=== PATIENT | female | born 1970 | race Caucasian/White ===

== ENCOUNTER 2023-09-19 10:29 | Outpatient (REF) | payer BC, SELFPAY ==
[2023-09-19 13:22] LABS: MANUAL DIFF FLAG NO
[2023-09-19 13:29] LABS: Basophils Absolute Auto 0.1 X10*3/uL (0.0-0.2); Basophils Percent Auto 1.1 % (0-2); Eosinophils Absolute Auto 0.2 X10*3/uL (0.0-0.4); Eosinophils Percent Auto 2.7 % (0-4); Hematocrit 44.1 % (37.0-47.0); Hemoglobin 14.2 g/dl (12.0-16.0); Imm Gran Abs Auto 0.03 X10*3/uL (0.00-0.03); Imm Gran Pct Auto 0.4 % (0.0-0.4); Lymphocytes Absolute Auto 1.9 X10*3/uL (1.2-4.9); Mean Corpuscular HGB Conc 32.2 g/dl (31.0-35.0); Mean Corpuscular Hemoglobin 26.2 pg (27.0-33.0); Mean Corpuscular Volume 81.4 fL (80.0-98.0); Mean Platelet Volume 11.9 fL (9.4-12.3); Monocytes Absolute Auto 0.6 X10*3/uL (0.1-1.2); Monocytes Percent Auto 7.4 % (2-11); Neutrophils Absolute Auto 4.7 x10*3/uL (2.0-8.3); Neutrophils Percent Auto 63.4 % (45-73); Platelet Count 229 X10*3/uL (160-400); Red Blood Count 5.42 X10*6/uL (4.20-5.50); White Blood Count 7.4 X10*3/uL (4.8-10.8)
[2023-09-19 13:51] LABS: Alanine Aminotransferase 18 U/L (0-31); Alkaline Phosphatase 54 U/L (39-117); Anion Gap 10 (12-20); Aspartate Amino Transferase 17 U/L (5-31); Bilirubin Total 0.8 mg/dL (0.0-1.0); Blood Urea Nitrogen 13 mg/dL (9-16); Calcium 9.3 mg/dL (8.4-10.2); Carbon Dioxide 26 mmol/L (22-29); Chloride 105 mmol/L (96-108); Cholesterol 274 mg/dL (<200); Estimated Glomerular Filt Rate > 60; Glucose Random 96 mg/dL (60-115); HDL Cholesterol 58 mg/dL (>40); LDL Cholesterol Calculated 176 mg/dL (<100); Potassium 4.6 mmol/L (3.3-5.1); Sodium 136 mmol/L (135-145); Total Protein 7.3 g/dL (6.5-8.0); Triglycerides 204 mg/dL (<150)
== END 2023-09-19 10:30 | disposition home or self-care (01) ==
LOC: HO.10HDL 10:29
PROVIDERS: Visit Provider Internal Medicine
DX: Z00.00 Encounter for general adult medical examination without abnormal findings (principal); F32.9 Major depressive disorder, single episode, unspecified; I10 Essential (primary) hypertension
CPT/HCPCS: 36415; 80053; 80061; 85025

== ENCOUNTER 2023-12-06 07:47 | Outpatient (AMB) | payer BC, SELFPAY ==
--- NOTE | 2023-12-06 07:58 | MHC.OFFVIS ---
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 Last co testing was many years ago, last mammogram was many years ago to. In addition, the patient is complaining of right breast lump PFSH Medical History Hyperlipidemia Family History Father HTN (hypertension) Heart attack Mother Lung cancer Paternal Uncle Heart attack Maternal Grandfather Lung cancer Maternal Aunt Ovarian cancer Social History Household Members Other:: brother Housing: House Alcohol intake: current Alcohol intake frequency: holidays/special occasions only Patient Tobacco Use Status: Never used Tobacco Current occupational status: employed Current occupation: [employer] Sexually active: Yes Sexual orientation: Straight/Heterosexual Gender identity: Female Female Reproductive History Menstrual Total pregnancies: 1 Full term: 1 Number of Living Children: 1 Review of Systems Const All systems reviewed & are unremarkable except as noted in HPI and below Card Reports as per HPI Resp Reports as per HPI GI Reports as per HPI and Reports no additional complaints Reports as per HPI Physical Exam Vital Signs: Last Vital Signs BP 122/80 12/06/23 08:00 BMI result Body Mass Index 28.3 Const General: cooperative, healthy appearing and comfortable Chest Chest palpation & inspection: normal inspection of the chest and normal palpation of entire chest wall Breast/axilla inspection: normal inspection of the breasts (Left breast within normal), normal inspection of the axillae and abnormal inspection of the breast (0.2 cm lump, 6 cm from the nipple at 6 o'clock) Breast/axilla palpation: normal palpation of the breasts, normal palpation of the axillae and no axillary lymphadenopathy Resp Effort & Inspection: normal respiratory effort Auscultation: clear to auscultation bilaterally Percussion: percussion normal Cardio Palpation: normal PMI Rate: regular rate Rhythm: regular rhythm Heart sounds: no murmurs and no rubs Peripheral pulses: Peripheral pulses 2+ throughout GI Inspection: Yes normal to inspection Palpation (GI): Soft to palpation, nontender, no guarding, not rigid and No hepatosplenomegaly present Percussion: Yes normal to percussion Auscultation: normal bowel sounds Rectal Exam - Female: deferred General: Yes bladder normal to palpation External Female Exam: No lesion Speculum Exam - Vagina: normal appearance of the vagina, normal palpation, normal vaginal discharge and not erythematous Speculum Exam - Cervix: normal appearance of the cervix, normal palpation and Other cervical findings present (Endocervical polyp 0.2 cm) Bimanual exam- vagina & uterus: normal bimanual exam, normal palpation, uterine size normal, bladder normal to palpation, consistency normal and normal palpation Bimanual Exam- Adnexa, other: normal adnexae, no masses and no tenderness Office Procedures DIGITAL STRATEGY DIRECTOR Biopsy Before the procedure was started, discussed with the patient the procedure technique, alternatives & all the risks associated with the procedure including but not limited to: bleeding , infection, uterine perforation, injury to bladder, vessels, bowels, possible need for transfusion with all its risks, and others. All questions were answered, the patient verbalized understanding and signed the consent. Urine test done in the office was negative Using a long Katiuska Clamp the endocervical polyp was grasped and twisted around till it came off, hemostasis was secured using pressure. The patient tolerated the procedure well. Instructions were given to the patient to call if bleeding, temp>100.4 occur. The patient verbalized understanding and agreed with the plan. This note was generated with a voice recognition program. Some errors may have been overlooked during the review of this note. Sometimes these errors may affect the content or meaning of a given sentence. 18735-Lszyvf of Cervix Procedure code (CPT) selection complete Assessment & Plan Assessment & Plan (1) Abnormal uterine bleeding (AUB): Code(s): N93.9 - Abnormal uterine and vaginal bleeding, unspecified Category: Medical Plan: Co testing done, GC and chlamydia taken CBC, TSH, prolactin, HCG, FSH/LH and pelvic ultrasound ordered. Discussed with the patient the different causes of abnormal bleeding including thyroid disorders, uterine and ovarian pathology, endometrial hyperplasia, carcinoma and other potential causes. Discussed with the patient the work up including CBC (to r/o anemia), TSH, prolactin, pelvic Ultrasound, endometrial biopsy to r/o endometrial pathology. All questions answered and the patient verbalized understanding. Instructed the patient to schedule an appointment for an endometrial biopsy in 2 weeks. (2) Breast lump: Comment: Right breast,0.2 cm lump, 6 cm from the nipple at 6 o'clock Code(s): N63.0 - Unspecified lump in unspecified breast Category: Medical Plan: Discussed with the patient the finding on Breast exam (breast lump) .The differential diagnosis includes but not limited to lump/cyst/pre cancer/cancer or dense breast tissue. The work up includes right breast US and bilateral implants diagnostic mammogram and referred the patient for surgical breast consult. Instructed the patient to call our office back in case a referral appointment is not scheduled, missed or canceled so that we will assist on rescheduling another appointment, the patient verbalized understanding agreed with the plan. (3) Endocervical polyp: Code(s): N84.1 - Polyp of cervix uteri Category: Medical Plan: Polypectomy done, see procedure note Orders: Orders HCG Quantitative Today N63.0 - Unspecified lump in unspecified breast, N93.9 - Abnormal uterine and vaginal bleeding, unspecified Follicle Stimulating Hormone Today N63.0 - Unspecified lump in unspecified breast, N93.9 - Abnormal uterine and vaginal bleeding, unspecified Complete Blood Count no Diff Today N63.0 - Unspecified lump in unspecified breast, N93.9 - Abnormal uterine and vaginal bleeding, unspecified US breast RT complete Today N63.0 - Unspecified lump in unspecified breast MM tomosynthesis diag imp BI Today N63.0 - Unspecified lump in unspecified breast TSH reflex Free T4 Today N63.0 - Unspecified lump in unspecified breast, N93.9 - Abnormal uterine and vaginal bleeding, unspecified Prolactin Today N63.0 - Unspecified lump in unspecified breast, N93.9 - Abnormal uterine and vaginal bleeding, unspecified Lutenizing Hormone Today N63.0 - Unspecified lump in unspecified breast, N93.9 - Abnormal uterine and vaginal bleeding, unspecified US pelvic and transvaginal Today N63.0 - Unspecified lump in unspecified breast, N93.9 - Abnormal uterine and vaginal bleeding, unspecified AMB DIGITAL STRATEGY DIRECTOR Biopsy Today N84.1 - Polyp of cervix uteri Referrals General Surgery Referral N63.0 - Unspecified lump in unspecified breast Coding Level of Care Code New Pt Level 3 (68502) Procedure Only Diagnoses Abnormal uterine bleeding (AUB) N93.9 Breast lump N63.0 Endocervical polyp N84.1 CPT Codes DIGITAL STRATEGY DIRECTOR Biopsy - CPT: 71578-Otmnct of Cervix ([id number])
[2023-12-06 08:00] VITALS: BP 122/80; BMI 28.3
== END 2023-12-06 08:49 | disposition home or self-care (01) ==
PROVIDERS: PCP Internal Medicine; Visit Provider Obstetrics & Gynecology
DX: N93.9 Abnormal uterine and vaginal bleeding, unspecified (principal); N63.0 Unspecified lump in unspecified breast; N84.1 Polyp of cervix uteri
CPT/HCPCS: 57500; 99203

== ENCOUNTER 2023-12-06 07:47 | Outpatient (REF) | payer BC, SELFPAY ==
[2023-12-06 18:05] LABS: CT PCR NOT DETECTED (Not Detect.); NG PCR NOT DETECTED (Not Detect.)
[2023-12-14 01:39] LABS: HPV mRNA E6/E7 rflx Not Detected (Not Detected)
== END 2023-12-06 07:48 | disposition home or self-care (01) ==
LOC: HO.LNP 07:47
PROVIDERS: Visit Provider Obstetrics & Gynecology
DX: Z12.4 Encounter for screening for malignant neoplasm of cervix (principal); Z11.51 Encounter for screening for human papillomavirus (HPV); N93.9 Abnormal uterine and vaginal bleeding, unspecified; N84.1 Polyp of cervix uteri; Z20.2 Contact with and (suspected) exposure to infections with a predominantly sexual mode of transmission
CPT/HCPCS: 0353U; 57500; 87624; 88142; 88305

== ENCOUNTER 2023-12-13 13:35 | Outpatient (REF) | payer BC, SELFPAY ==
--- NOTE | ~2023-12-13 | US_ITS ---
EXAMINATION: US PELVIS COMPLETE CLINICAL INFORMATION: Abnormal uterine bleeding; the last menstrual period is not specified. COMPARISON: None. TECHNIQUE: Transabdominal imaging was performed. FINDINGS: The uterus is of normal size and echogenicity, measuring 8.8 x 5.1 x 8.1 cm. The uterus is anteverted and anteflexed. A regular, homogeneous endometrium is identified measuring 1.6 cm. A Nabothian cyst is seen within the cervix. FIBROIDS: There is 1 fibroid seen. 1. Location: Lower anterior uterine body, myometrial. Size: 1.6 x 0.8 x 1.3 cm. Fibroid characteristics: Hypoechoic Both ovaries are of normal size and echogenicity. The right measures 2.6 x 1.7 x 2.3 cm for a volume of 5.3 mL. The left measures 2.4 x 1.1 x 1.7 cm for a volume of 2.3 mL. There is no pelvic free fluid. No adnexal mass is seen. US/US pelvic and transvaginal IMPRESSION: 1. A small uterine fibroid is seen, as detailed. 2. The endometrial stripe thickness is upper normal. 3. A nabothian cyst is seen within the cervix.
== END 2023-12-13 13:36 | disposition home or self-care (01) ==
LOC: HO.US 13:35
PROVIDERS: PCP Internal Medicine; Visit Provider Obstetrics & Gynecology
DX: N93.9 Abnormal uterine and vaginal bleeding, unspecified (principal); N63.0 Unspecified lump in unspecified breast
CPT/HCPCS: 76830; 76856

== ENCOUNTER 2023-12-14 14:19 | Outpatient (AMB) | payer BC, SELFPAY ==
[2023-12-14 14:24] VITALS: BMI 29.8
--- NOTE | 2023-12-14 14:24 | MHC.OFFVIS ---
Vital Signs 12/14/23 14:24 Height 5 ft 3 in Weight 168 lb BMI 29.8 Intake Visit Reasons: right breast lump Intake Note: This patient presents for an assessment for right breast lump. Patient c/o; reports lump under right breast, reports no pain or tenderness, reports no discharge. 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 She says that she has felt this lump on the underside of her right breast for about months now. She says that this started as a small lump that became swollen. This has then shrank back to previous size. She says she may have noticed a little bit of scanty drainage in the past She does have a history of breast implants from 10 years ago. She denies any trauma or insect bite in the past. Her menarche was at age of 10. Her 1st was at age of 22. She says she had only 1 . She continues to have external periods although this has been irregular. REPLACED BY [facility] Medical History (Updated 12/14/23 @ 14:49 by Braulio Du MD) Epidermal cyst Hyperlipidemia Family History Father HTN (hypertension) Heart attack Mother Lung cancer Bone cancer Paternal Uncle Heart attack Maternal Grandfather Lung cancer Maternal Aunt Ovarian cancer Family/Other Brain cancer Lung cancer Social History Household Members Other:: brother Housing: House Alcohol intake: current Alcohol intake frequency: holidays/special occasions only Patient Tobacco Use Status: Never used Tobacco Current occupational status: employed Current occupation: [employer] Sexual orientation: Straight/Heterosexual Gender identity: Female Female Reproductive History Menstrual Age of Menarche: 10 Total pregnancies: 1 Full term: 1 Review of Systems Const Denies chills and Denies fever(s) Card Denies chest pain, Denies dyspnea and Denies dyspnea on exertion Resp Denies cough, Denies dyspnea and Denies dyspnea on exertion GI Denies hematochezia and Denies change in bowel habits Denies hematuria Musc Denies back pain and Denies limited range of motion Neuro Denies focal weakness and Denies convulsions Psych Denies depression and Denies mood swings Physical Exam Vital Signs: BMI result Body Mass Index 29.8 Const General: comfortable and no acute distress Orientation/consciousness: patient oriented x3 Neck Neck: Yes no lymphadenopathy Chest Other: Lower part of the right breast with note of a cystic induration on the skin, about 1 cm in size, consistent with an epidermal cyst, not inflamed, not tender No palpable masses on either breasts, no axillary lymphadenopathy Resp Auscultation: clear to auscultation bilaterally Cardio Rhythm: regular rhythm GI Palpation (GI): Soft to palpation, nontender and no guarding Neuro General: patient oriented x3 Assessment & Plan Assessment & Plan (1) Epidermal cyst: Code(s): L72.0 - Epidermal cyst Category: Medical Plan: She has an epidermal cyst of the right breast. This is currently not swollen and not inflamed I explained to her the option of excision. I discussed the technique of this procedure under local anesthesia. I reviewed the risks, benefits, and alternatives She says she will continue to monitor the epidermal cyst for now and will come back to me if she decides to proceed. She is scheduled to have a mammogram next week as well for screening. Coding Level of Care Code New Pt Level 3 (07908) Diagnoses Epidermal cyst L72.0
== END 2023-12-14 14:47 | disposition home or self-care (01) ==
PROVIDERS: PCP Internal Medicine; Referring Provider Obstetrics & Gynecology; Visit Provider Surgery
DX: L72.0 Epidermal cyst (principal)
CPT/HCPCS: 99203

== ENCOUNTER → 2023-12-14 14:19 | Outpatient (BNVA) | payer BC, SELFPAY | PROVIDERS: Referring Provider Obstetrics & Gynecology; Visit Provider Surgery ==

== ENCOUNTER 2023-12-20 10:22 | Outpatient (REF) | payer BC, SELFPAY ==
[2023-12-20 13:10] LABS: MANUAL DIFF FLAG NO
[2023-12-20 13:36] LABS: Basophils Absolute Auto 0.1 X10*3/uL (0.0-0.2); Basophils Percent Auto 0.9 % (0-2); Eosinophils Absolute Auto 0.2 X10*3/uL (0.0-0.4); Eosinophils Percent Auto 2.7 % (0-4); Hematocrit 40.9 % (37.0-47.0); Hemoglobin 13.1 g/dl (12.0-16.0); Imm Gran Abs Auto 0.04 X10*3/uL (0.00-0.03); Imm Gran Pct Auto 0.5 % (0.0-0.4); Lymphocytes Absolute Auto 2.3 X10*3/uL (1.2-4.9); Lymphocytes Percent Auto 30.4 % (20-40); Mean Corpuscular Hemoglobin 26.1 pg (27.0-33.0); Mean Corpuscular Volume 81.5 fL (80.0-98.0); Mean Platelet Volume 12.1 fL (9.4-12.3); Monocytes Absolute Auto 0.5 X10*3/uL (0.1-1.2); Monocytes Percent Auto 6.8 % (2-11); Neutrophils Absolute Auto 4.4 x10*3/uL (2.0-8.3); Neutrophils Percent Auto 58.7 % (45-73); Platelet Count 238 X10*3/uL (160-400); Red Blood Count 5.02 X10*6/uL (4.20-5.50); Red Cell Distribution Width 13.2 % (11.0-16.0); White Blood Count 7.5 X10*3/uL (4.8-10.8)
[2023-12-20 13:53] LABS: Alanine Aminotransferase 30 U/L (0-31); Albumin Level 4.1 g/dL (3.5-5.0); Alkaline Phosphatase 57 U/L (39-117); Anion Gap 9 (12-20); Aspartate Amino Transferase 23 U/L (5-31); Blood Urea Nitrogen 8 mg/dL (9-16); Calcium 9.3 mg/dL (8.4-10.2); Carbon Dioxide 28 mmol/L (22-29); Chloride 106 mmol/L (96-108); Cholesterol 180 mg/dL (<200); Estimated Glomerular Filt Rate > 60; Glucose Random 95 mg/dL (60-115); HDL Cholesterol 60 mg/dL (>40); LDL Cholesterol Calculated 95 mg/dL (<100); Potassium 4.4 mmol/L (3.3-5.1); Sodium 139 mmol/L (135-145); Total Protein 7.5 g/dL (6.5-8.0); Triglycerides 125 mg/dL (<150)
[2023-12-20 14:09] LABS: Thyroid Stimulating Hormone 0.87 uIU/mL (0.32-4.0)
[2023-12-20 14:11] LABS: HCG Quantitative < 2 mIU/mL; TSH reflex Free T4 0.92 uIU/mL (0.32-4.0)
[2023-12-22 01:18] LABS: Follicle Stimulating Hormone 30.9 mIU/mL; Prolactin 4.9 ng/mL
== END 2023-12-20 10:23 | disposition home or self-care (01) ==
LOC: HO.10HDL 10:22
PROVIDERS: Referring Provider Internal Medicine; Visit Provider Obstetrics & Gynecology
DX: E78.00 Pure hypercholesterolemia, unspecified (principal); F32.5 Major depressive disorder, single episode, in full remission; I10 Essential (primary) hypertension; N95.0 Postmenopausal bleeding; R53.83 Other fatigue; N39.9 Disorder of urinary system, unspecified; N63.0 Unspecified lump in unspecified breast
CPT/HCPCS: 36415; 80053; 80061; 83001; 83002; 84146; 84443; 84702; 85025

== ENCOUNTER 2023-12-20 14:46 | Outpatient (REF) | payer BC, SELFPAY ==
--- NOTE | ~2023-12-20 | US_ITS ---
EXAMINATION: MM DIAGNOSTIC DIGITAL BREAST TOMOSYNTHESIS, BILATERAL US BREAST LIMITED, RIGHT CLINICAL INFORMATION: 53-year-old female, Palpable lump right breast 6:00 axis, 6 cm from nipple. Baseline exam, also bilateral screening. Bilateral implants in place. No significant family history. No additional prior surgery. COMPARISON: Mammography: None. Baseline exam. TECHNIQUE: Digital mammography is performed in craniocaudal and mediolateral oblique views. Digital breast tomosynthesis is performed in implant-displaced craniocaudal and implant-displaced mediolateral oblique views. Synthesized 2D images are generated from the tomosynthesis. Computer-aided detection (CAD) is performed for this exam. In addition, spot compression 3-D implant displaced right CC and MLO views were obtained, as well as a implant displaced full-field 3-D right mediolateral view. FINDINGS: The breasts are heterogeneously dense, which may obscure small masses (ACR BI-RADS breast composition Category c). The implant contours are unremarkable. Mild skin thickening measuring 3 mm x 20 mm is noted abutting the BB marker, which may explain the palpable focus of concern. This appears to represent a dermal lesion. Otherwise, There are no suspicious masses, suspicious grouped calcifications, or areas of architectural distortion in either breast. No additional abnormality is seen abutting the BB marker at 6:00 in the right breast. This will be evaluated with ultrasound. No additional skin abnormality. No axillary abnormalities. ULTRASOUND: CLINICAL INFORMATION: As above. COMPARISON: None TECHNIQUE: Targeted sonographic evaluation right breast was performed using a high frequency linear transducer. Attention was given to the palpable region of concern 6:00 axis right breast. Selected archived documentation. FINDINGS: RIGHT BREAST: -No suspicious mass, abnormal shadowing, cystic abnormality, or area of architectural distortion is identified. -In the region of palpable concern, there is a dermal lesion with skin thickening measuring 5 x 2 x 5 mm, most likely a sebaceous cyst or similar. This finding is benign. US/US breast RT limited mamm only IMPRESSION: -There are no findings suspicious for malignancy in either breast. -Bilateral implants are present without complication. -Focus of palpable concern 6:00 right breast relates to a dermal lesion. Recommend clinical management. -Otherwise, recommend returning to routine annual screening mammography. OVERALL ASSESSMENT: Mammography: BI-RADS 2 - Benign Findings Ultrasound: BI-RADS 2 - Benign Findings RECOMMENDATION: 1. Patient should be managed based on the clinical impression. 2. Otherwise, routine annual screening mammography.
== END 2023-12-20 14:47 | disposition home or self-care (01) ==
LOC: HO.MAMMO 14:46
PROVIDERS: PCP Internal Medicine; Visit Provider Obstetrics & Gynecology
DX: N63.15 Unspecified lump in the right breast, overlapping quadrants (principal)
CPT/HCPCS: 76642; 77062; 77066

== ENCOUNTER → 2023-12-20 15:30 | Outpatient (BNV) | payer BC, SELFPAY | PROVIDERS: PCP Internal Medicine; Visit Provider Radiology Diagnostic Radiology | DX: N63.15 Unspecified lump in the right breast, overlapping quadrants (principal) | CPT/HCPCS: 76642; 77062; 77066 ==

== ENCOUNTER 2024-01-10 12:14 | Outpatient (AMB) | payer BC, SELFPAY ==
--- NOTE | 2024-01-10 12:21 | MHC.OFFVIS ---
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 Gas Present (Becca) Allergies No Known Allergies Allergy (Verified 01/10/24 12:21) Post menopausal: Yes HPI Comments Details: Presenting for EMB [facility] Medical History (Updated 12/14/23 @ 14:49 by Braulio Du MD) Epidermal cyst Hyperlipidemia Family History Father HTN (hypertension) Heart attack Mother Lung cancer Bone cancer Paternal Uncle Heart attack Maternal Grandfather Lung cancer Maternal Aunt Ovarian cancer Family/Other Brain cancer Lung cancer Social History Household Members Other:: brother Housing: House Alcohol intake: current Alcohol intake frequency: holidays/special occasions only Patient Tobacco Use Status: Never used Tobacco Current occupational status: employed Current occupation: [employer] Sexual orientation: Straight/Heterosexual Gender identity: Female Female Reproductive History Menstrual Age of Menarche: 10 Physical Exam Vital Signs: Last Vital Signs BP 132/80 01/10/24 12:22 BMI result Body Mass Index 29.8 Office Procedures Endometrial Biopsy Details: The patient was counseled regarding the indication and benefits of endometrial sampling to rule out endometrial pathology including not limited to endometrial hyperplasia or endometrial cancer and others; The alternatives (Either do nothing vs. hysteroscopy D&C) & the risks were discussed with the patient including but not limited: pain, uterine perforation, bleeding, infection, possible injury to bladder, bowel, ureter, possible need for blood transfusion with all its possible risks. The patient verbalized understanding all questions answered and signed consent. The patient was placed into the dorsal lithotomy position; a speculum was inserted in the vagina. Using aseptic technique for the procedure, the cervix was cleansed with Betadine. The anterior lip of the cervix was grasped with a single tooth tenaculum. The uterus was sounded to 7 cm with a 4 mm Pipelle was used. Tissues samples were obtained and placed in formalin, in a patient labeled container and sent to the pathology department. At the end of the procedure, there was minimal bleeding noted The patient tolerated the procedure well and was discharged in good condition with the following instructions: Nothing in the vagina until the bleeding stops. No sex until the bleeding stops, to call if any of the following occurs: fever (>100.4), flu-like symptoms, abdominal pain, heavy bleeding, four smelling vaginal discharge. The patient was instructed to schedule a Follow up appointment in 2 weeks to discuss pathology results of the biopsy and treatment options. This note was generated with a voice recognition program. Some errors may have been overlooked during the review of this note. Sometimes these errors may affect the content or meaning of a given sentence. [id number] Biopsy Assessment & Plan Assessment & Plan (1) Abnormal uterine bleeding (AUB): Code(s): N93.9 - Abnormal uterine and vaginal bleeding, unspecified Category: Medical Plan: EMB done, see procedure Orders: Orders AMB Endometrial Biopsy Today N93.9 - Abnormal uterine and vaginal bleeding, unspecified Coding Level of Care Code Procedure Only Diagnoses Abnormal uterine bleeding (AUB) N93.9 CPT Codes Endometrial Biopsy - CPT: 61680-Pjybjzxizwd Biopsy ([id number])
[2024-01-10 12:22] VITALS: BP 132/80; BMI 29.8
== END 2024-01-10 12:42 | disposition home or self-care (01) ==
LOC: HO.HWS 12:14
PROVIDERS: PCP Internal Medicine; Visit Provider Obstetrics & Gynecology
DX: N93.9 Abnormal uterine and vaginal bleeding, unspecified (principal); Z32.02 Encounter for pregnancy test, result negative
CPT/HCPCS: 58100

== ENCOUNTER 2024-01-10 12:14 | Outpatient (REF) | payer BC, SELFPAY | END 2024-01-10 12:15 | disposition home or self-care (01) | LOC: HO.LAB 12:14 | PROVIDERS: PCP Internal Medicine; Visit Provider Obstetrics & Gynecology | DX: N93.9 Abnormal uterine and vaginal bleeding, unspecified (principal) | CPT/HCPCS: 58100; 81025; 88305 ==

== ENCOUNTER 2024-01-16 14:54 | Outpatient (AMB) | payer BC, SELFPAY ==
[2024-01-16 14:56] VITALS: BP 122/76; BMI 29.7
--- NOTE | 2024-01-16 14:56 | MHC.OFFVIS ---
Vital Signs 01/16/24 14:56 Height 5 ft 3 in Weight 167 lb 8.821 oz BMI 29.7 BP 122/76 Intake Visit Reasons: pre op Allergies No Known Allergies Allergy (Verified 01/10/24 12:21) HPI Comments Details: The patient is presenting after endometrial biopsy. The patient has no complaints, no vaginal bleeding, no feverishness chills or abdominal pain. The endometrial biopsy pathology report showed the following: Benign disordered proliferative endometrium with focal secretory changes, glandular and stromal breakdown, and fragments suggestive of endometrial polyp/s; no atypia or carcinoma PFSH Medical History Epidermal cyst Hyperlipidemia Family History Father HTN (hypertension) Heart attack Mother Lung cancer Bone cancer Paternal Uncle Heart attack Maternal Grandfather Lung cancer Maternal Aunt Ovarian cancer Family/Other Brain cancer Lung cancer Social History Household Members Other:: brother Housing: House Alcohol intake: current Alcohol intake frequency: holidays/special occasions only Patient Tobacco Use Status: Never used Tobacco Current occupational status: employed Current occupation: [employer] Sexual orientation: Straight/Heterosexual Gender identity: Female Female Reproductive History Menstrual Age of Menarche: 10 Review of Systems Const All systems reviewed & are unremarkable except as noted in HPI and below Card Reports as per HPI Resp Reports as per HPI GI Reports as per HPI and Reports no additional complaints Reports as per HPI Physical Exam Vital Signs: Last Vital Signs BP 122/76 01/16/24 14:56 BMI result Body Mass Index 29.7 Const General: cooperative, healthy appearing and comfortable Chest Chest palpation & inspection: normal inspection of the chest and normal palpation of entire chest wall Breast/axilla inspection: normal inspection of the breasts and normal inspection of the axillae Breast/axilla palpation: normal palpation of the breasts, normal palpation of the axillae and no axillary lymphadenopathy Resp Effort & Inspection: normal respiratory effort Auscultation: clear to auscultation bilaterally Percussion: percussion normal Cardio Palpation: normal PMI Rate: regular rate Rhythm: regular rhythm Heart sounds: no murmurs and no rubs Peripheral pulses: Peripheral pulses 2+ throughout GI Inspection: Yes normal to inspection Palpation (GI): Soft to palpation, nontender, no guarding, not rigid and No hepatosplenomegaly present Percussion: Yes normal to percussion Auscultation: normal bowel sounds Rectal Exam - Female: deferred General: Yes bladder normal to palpation External Female Exam: No lesion Speculum Exam - Vagina: normal appearance of the vagina, normal palpation, normal vaginal discharge and not erythematous Speculum Exam - Cervix: normal appearance of the cervix and normal palpation Bimanual exam- vagina & uterus: normal bimanual exam, normal palpation, uterine size normal, bladder normal to palpation, consistency normal and normal palpation Bimanual Exam- Adnexa, other: normal adnexae, no masses and no tenderness Assessment & Plan Assessment & Plan (1) Abnormal uterine bleeding (AUB): Comment: Endometrial polyp by EMB pathology Code(s): N93.9 - Abnormal uterine and vaginal bleeding, unspecified Category: Medical Plan: Discussed with the patient the results the endometrial biopsy showing fragments of endometrial polyp, recommended hysteroscopy D&C possible polypectomy/myomectomy Discussed with the patient the procedure , all benefits and risks including but not limited to inability to complete the procedure , insufficient endometrial tissue for a complete evaluation of the endometrial cavity , bleeding, infection, possible need for blood transfusion with all its risk ( HIV,syphilis, Hepatitis, anaphylaxis shock, others..), injury to bladder, rectum, possible need for laparoscopy/laparotomy or hysterectomy. The patient verbalized understanding and signed the consent. Instructions given the patient to stay NPO after midnight the day prior to the procedure and to take only the specific medication (s) discussed the morning of the surgical procedure and to schedule a 2 week postoperative appointment Coding Level of Care Code Est Pt Level 3 (91649) Diagnoses Abnormal uterine bleeding (AUB) N93.9
== END 2024-01-16 15:32 | disposition home or self-care (01) ==
LOC: HO.HWS 14:54
PROVIDERS: PCP Internal Medicine; Visit Provider Obstetrics & Gynecology
DX: N93.9 Abnormal uterine and vaginal bleeding, unspecified (principal)
CPT/HCPCS: 99213

== ENCOUNTER → 2024-01-16 14:54 | Outpatient (BNVA) | payer BC, SELFPAY | PROVIDERS: PCP Internal Medicine; Visit Provider Obstetrics & Gynecology ==

== ENCOUNTER 2024-01-26 09:20 | Day surgery (SDC) | payer BC, SELFPAY ==
[2024-01-26 09:31] VITALS: BMI 29.7
--- NOTE | 2024-01-26 09:55 | HO.ANESPROP2 ---
Documented by User: Lyndsey Ledesma NP 01/24/24 12:25 HPI - Anesthesia Eval Consult details Narrative: 53yo F for D&C Hysteroscopy,possible myomectomy,possible polypectomy PMFSH Active Problems Active Problems: All Active Problems Endometrial polyp (Acute) Epidermal cyst (Acute) Endocervical polyp (Acute) Breast lump (Acute) Abnormal uterine bleeding (AUB) (Acute) Past Medical History Medical History Epidermal cyst Hyperlipidemia Family History Family History Father HTN (hypertension) Heart attack Mother Lung cancer Bone cancer Paternal Uncle Heart attack Maternal Grandfather Lung cancer Maternal Aunt Ovarian cancer Family/Other Brain cancer Lung cancer Social History Social History Household Members Other:: brother Housing: House Alcohol intake: current Alcohol intake frequency: a few times a week Patient Tobacco Use Status: Never used Tobacco Use of substances other than those prescribed or required for medical reasons: No Are you DNR?: No Advance Directives: No Advance Directives Information Provided: Yes Advance Directives on File: No Current occupational status: employed Current occupation: [employer] Sexual orientation: Straight/Heterosexual Gender identity: Female Meds Allergies Allergy/AdvReac Type Severity Reaction Status Date / Time No Known Allergies Allergy Verified 01/10/24 12:21 Home Medications ?Medication ?Instructions ?Recorded ?Confirmed ?Last Taken ?Type atorvastatin 40 mg tablet 40 mg PO DAILY 12/06/23 01/26/24 01/25/24 History sertraline 50 mg tablet 50 mg PO DAILY 12/06/23 01/26/24 01/25/24 History Assessment and Plan Assessment Anesthesia Assessment: Chart Reviewed Documented by User: Tessy Gustafson DO 01/26/24 09:58 PMFSH Past Medical History Medical History Epidermal cyst Hyperlipidemia Family History Family History Father HTN (hypertension) Heart attack Mother Lung cancer Bone cancer Paternal Uncle Heart attack Maternal Grandfather Lung cancer Maternal Aunt Ovarian cancer Family/Other Brain cancer Lung cancer Family history of problems with anesthesia: No Surgical History History of Problems with Anesthesia: No Social History Social History Household Members Other:: brother Housing: House Alcohol intake: current Alcohol intake frequency: a few times a week Patient Tobacco Use Status: Never used Tobacco Use of substances other than those prescribed or required for medical reasons: No Are you DNR?: No Advance Directives: No Advance Directives Information Provided: Yes Advance Directives on File: No Current occupational status: employed Current occupation: [employer] Sexual orientation: Straight/Heterosexual Gender identity: Female Meds Allergies Allergy/AdvReac Type Severity Reaction Status Date / Time No Known Allergies Allergy Verified 01/10/24 12:21 Home Medications ?Medication ?Instructions ?Recorded ?Confirmed ?Last Taken ?Type atorvastatin 40 mg tablet 40 mg PO DAILY 12/06/23 01/26/24 01/25/24 History sertraline 50 mg tablet 50 mg PO DAILY 12/06/23 01/26/24 01/25/24 History Exam Exam Date and Time: January 26, 2024 0957 Height,Weight and Vital Signs: Vital Signs Oxygen Delivery Method Room Air 01/26/24 09:44 Oxygen Delivery Method Room Air 01/26/24 09:44 Height 5 ft 3 in Weight 75.948 kg Airway Mallampati Class: II TM Dist: >3cm Neck ROM: Full Loose/Missing/Broken Teeth: No (patient denies any loose or broken teeth) Heart: S1S2 Lungs: CTAB Assessment and Plan Assessment Anesthesia Assessment: Anesthesia Plan Discussed and Chart Reviewed Final Anesthetic Review Family History of Problems with Anesthesia: No History of Problems with Anesthesia: No NPO: Yes ASA Class: I Final Preanesthetic Review: No Changes in Pt Med Stat, Meds/Allgs Chart Reviewed, Consent Obtained/Reviewed and Anes Risks/Benef Reviewed Patient Risk: Low Procedure Risk: Low Anesthetic Plan Anesthetic Plan: GA and Agree w/ Assess. and Plan Disposition: Standard PACU
[2024-01-26] MEDS: Lactated Ringers 1,000 ML 100 ML IVCONT (10:01)
[2024-01-26 10:04] VITALS: BP 132/62; PULSE 62; RESP 18; TEMP 35.9; O2SAT 96
--- NOTE | 2024-01-26 10:10 | MHC.SHP ---
Pre-Procedural Eval Section A - 24 Hr Update-Section A only Date of Service: 01/26/24 The patient is an INPATIENT: No Changes since office visit: No Cold of Flu in the past 2 weeks, No New Medical Problems, No Changes in Medication and No Patient answered all questions The patient has been examined within 24 hours of the surgical procedure. The History & Physical has been completed within 30 days and I have reviewed it.: Yes Section B - Complete if H&P > 30 days Chief Complaint: Abnormal uterine and vaginal bleeding, unspecified Allergies: Allergies Allergy/AdvReac Type Severity Reaction Status Date / Time No Known Allergies Allergy Verified 01/10/24 12:21 Plan Diagnosis/Plan: Unchanged I have reviewed the history and physical and performed a pertinent physical examination on my patient. No changes have occurred unless specified. Time Spent With Patient Time: Total time managing care of this patient today ____ minutes.
--- NOTE | 2024-01-26 11:12 | P.BOP_ITS ---
Brief Operative Note Date of Service: 01/26/24 Pre-op diagnosis: Abnormal uterine bleeding, endometrial polyp on EMB pathology Post-op diagnosis: same (Endometrial polyp) Procedure: Hysteroscopy D&C, Polypectomy Surgeon: Alvaro Gill MD Anesthesia: GLMA Was an Head Turning Machine Operator used for this Procedure?: No Estimated blood loss (mL): 0 Pathology: other (Endometrial Scrapping. Polyp) Condition: stable Disposition: PACU
--- NOTE | 2024-01-26 11:12 | W.PM.OPN ---
Operative Note Operative Note Date of Service: 01/26/24 Narrative: Preop Diagnosis: Abnormal uterine bleeding, Endometrial polyp on EMB pathology Operation: Diagnostic Hysteroscopy, Dilataion & Curettage and polypectomy Post Op Diagnosis: Endometrial Polyp QBL: Minimal Anesthesia: GLMA Surgeon: Alvaro Gill MD Heating Equipment Installer: None Complication: None Pathology: Endometrial Scrapings, Endometrial polyp Procedure: The patient was put in the dorsal lithotomy position, scrubbed, and draped in the usual manner. A sterile speculum was inserted in the patient's vagina. The anterior lip of the cervix was grasped with a single tooth tenaculum. The cervix was dilated up to 5 mm, then the scope was inserted in the patient's uterus. Inspection revealed endometrial polyp. The Myosure Reach device was used; it was introduced through the operative channel and polypectomy done with no complications. The scope was then taken out from the uterine cavity, sharp curettings was carried on with minimal to moderate amount of tissues retrieved. At the end of the procedure, all instruments were taken out of the patient uterine and vaginal cavity. The single tooth tenaculum was removed and homeostasis was assured using pressure,. The patient tolerated the procedure well and was transferred to the PACU in a stable condition.
[2024-01-26 11:14] VITALS: BP 100/49; PULSE 58; RESP 14; TEMP 36.6; O2SAT 98
[2024-01-26 11:19] VITALS: BP 97/54; PULSE 61; RESP 14; O2SAT 94
[2024-01-26 11:24] VITALS: BP 108/53; PULSE 78; RESP 16; O2SAT 95
[2024-01-26 11:29] VITALS: BP 115/63; PULSE 70; RESP 16; O2SAT 95
[2024-01-26 11:40] VITALS: BP 122/66; PULSE 66; RESP 16; TEMP 36.6; O2SAT 97
== END 2024-01-26 12:10 | disposition home or self-care (01) ==
PROVIDERS: PCP Internal Medicine; Visit Provider Obstetrics & Gynecology
PROC: 0UDB8ZZ Extraction of Endometrium, Via Natural or Artificial Opening Endoscopic (ICD-10-PCS; CPT 58558; principal; 2024-01-26 11:00)
DX: N93.9 Abnormal uterine and vaginal bleeding, unspecified (principal); N84.0 Polyp of corpus uteri; E78.5 Hyperlipidemia, unspecified; Z79.899 Other long term (current) drug therapy
CPT/HCPCS: 58558; 88305; J1100; J1885; J2250; J2405; J2704; J3010

== ENCOUNTER → 2024-01-26 09:20 | Outpatient (BNV) | payer BC, SELFPAY | PROVIDERS: PCP Internal Medicine; Visit Provider Obstetrics & Gynecology | DX: N93.9 Abnormal uterine and vaginal bleeding, unspecified (principal); N84.0 Polyp of corpus uteri | CPT/HCPCS: 58558 ==

== ENCOUNTER 2024-02-08 12:46 | Outpatient (AMB) | payer BC, SELFPAY ==
--- NOTE | 2024-02-08 12:47 | A.OFFVIS_ITS ---
Vital Signs 02/08/24 12:49 BP 116/70 Intake Visit Reasons: post op Allergies No Known Allergies Allergy (Verified 02/08/24 12:47) HPI Comments Details: The patient is presenting post hysteroscopy D&C no complaints minimal vaginal bleeding no feverishness chills or abdominal pain. The pathology showed the following: A. Endometrium, curettage: Disordered weakly proliferative endometrium; no atypia or hyperplasia identified. B. Endometrium, polypectomy: Fragments of endometrial polyp; no atypia identified. PFSH Medical History Epidermal cyst Hyperlipidemia Family History Father HTN (hypertension) Heart attack Mother Lung cancer Bone cancer Paternal Uncle Heart attack Maternal Grandfather Lung cancer Maternal Aunt Ovarian cancer Family/Other Brain cancer Lung cancer Social History Household Members Other:: brother Housing: House Alcohol intake: current Alcohol intake frequency: a few times a week Patient Tobacco Use Status: Never used Tobacco Current occupational status: employed Current occupation: [employer] Sexual orientation: Straight/Heterosexual Gender identity: Female Female Reproductive History Menstrual Age of Menarche: 10 Review of Systems Const All systems reviewed & are unremarkable except as noted in HPI and below Reports as per HPI and Reports no additional complaints GI Reports no additional complaints Reports no additional complaints Office Procedures IUD Insert/Removal Details Details: The patient is presenting for Mirena IUD insertion Urine test was done in the office and was negative; All the contraindications were excluded. The following possible complications were discussed with the patient: Intrauterine , Ectopic , Sepsis, Pelvic Infection, Irregular Bleeding and Amenorrhea, Perforation, Expulsion, Ovarian Cysts, Breast Cancer, The following adverse effects were discussed with the patient: alteration of menstrual bleeding pattern, including: unscheduled uterine bleeding decreased uterine bleeding increased scheduled uterine bleeding female genital tract bleeding ,amenorrhea , genital discharge , vulvovaginitis , breast pain , benign ovarian cyst and associated complications , dysmenorrhea , Gastrointestinal disorders abdominal/pelvic pain, headache/migraine , back pain , acne , depression Alternative options were discussed with the patient including but not limited: control pills, patch, NuvaRing, Depo-medroxyprogesterone acetate, Nexplanon, copper IUD, sterilization, vasectomy, others The procedure was explained in detail to patient , at the end patient signed the informed consent obtained. A no touch technique was used throughout the procedure. A speculum was placed into vagina and cervix was cleaned with betadine). A tenaculum was placed. A plastic sound was advanced through the external and internal os until it reached the fundus of the uterus, the depth was 8 cm. The sound was then withdrawn. The IUD was loaded in a sterile manner and advanced into position. The string was visualized and cut to 3 cm. Tenaculum site hemostatic. All instruments removed from vagina. Patient tolerated the procedure well. NO complications were noted. Patient was instructed to call for fever over 100.4, significant pain unrelieved by Motrin, IUD expulsion, heavy bleeding, or abnormal discharge. In addition, the following clinical considerations were discussed with the patient to call for removal: A stroke or heart attack ,Very severe or migraine headaches ,Unexplained fever ,Yellowing of the skin or whites of the eyes, as these may be signs of serious liver problems , or suspected , Pelvic pain or pain during sex ,HIV positive seroconversion in herself or her partner , Possible exposure to sexually transmitted infections Unusual vaginal discharge or genital sores , severe vaginal bleeding or bleeding that lasts a long time, or if she misses a menstrual period, Inability to feel Mirena's threads Counseled the patient that the IUD does not protect against STI's, recommended use of condoms for the first 7 days post insertion and explained to the patient that condoms are recommended for patients at risk for sexually transmitted infections. Informed the patient that Mirena IUD is FDA approved for 5 years for the treatment of heavy menses Instructed the patient to schedule a Follow up appointment in 4 to 6 weeks following insertion. This note was generated with a voice recognition program. Some errors may have been overlooked during the review of this note. Sometimes these errors may affect the content or meaning of a given sentence. [id number] Insertion Procedure code (CPT) selection complete Office Meds Mirena 21 mcg/24 hr (up to 8 years) 52 mg intrauterine device Performing Provider: Alvaro Gill MD [place] [facility] [place] [facility] Documented (not given) by: Alvaro Gill MD on 02/08/24 13:10 Dose Route Admin Location Dispensed Lot Number Expiration Date [facility] Mobile Practice Lead 1 device intrauterine ea Assessment & Plan Assessment & Plan (1) Abnormal uterine bleeding (AUB): Comment: Proliferative endometrium on pathology Code(s): N93.9 - Abnormal uterine and vaginal bleeding, unspecified Category: Medical Plan: Discussed with the patient the results of the pathology of the endometrial scrapings showing proliferative endometrium. Discussed with the patient the sensitivity, specificity, positive and negative predictive value, of endometrial biopsy in detecting endometrial pathology including but not limited to endometrial hyperplasia, cancer and other pathology; in addition discussed the patient the pathology of the endometrium in post menopause is associated with an increase in the risk of endometrial hyperplasia and malignancy in patient with preferred of endometrial pathology in menopause. Recommended to the patient progesterone treatment , levo norgestrel IUD for p.o. progestins in addition to repeat endometrial biopsy every 3 months for a year. All pros and cons, risks and benefits of each were discussed with the patient. The patient decided to proceed with Mirena IUD. so a more detailed discussion about it was conducted including mechanism of action, risks (uterine p erforation, infection, injury to bladder, bowel, displacement, increase in the risk of breast cancer and others) benefits (decrease the risk of future endometrial hyperplasia and carcinoma of the endometrium ...). GC/CT were taken few weeks ago and were negative and Mirena IUD insertion was done today, see procedure note; in addition , recommended repeat endometrial biopsy every 3 months for 1 year. Instructed the patient to call in case is vaginal bleeding bleeding recurs, schedule endometrial biopsy in 3 months. All questions answered and the patient verbalized understanding and agreed with the plan. Orders: Orders AMB IUD Insertion/Removal - Practice Supplied Today N93.9 - Abnormal uterine and vaginal bleeding, unspecified Medications: New Mirena (levonorgestrel) 1 device intrauterine ONCE 1 ea 0RF IUD insertion NS N93.9 - Abnormal uterine and vaginal bleeding, unspecified Coding Level of Care Code Est Pt Level 3 (12443) Procedure Only Diagnoses Abnormal uterine bleeding (AUB) N93.9 CPT Codes Details - CPT: 27255-OYB Insertion ([id number])
[2024-02-08 12:49] VITALS: BP 116/70
== END 2024-02-08 13:15 | disposition home or self-care (01) ==
PROVIDERS: PCP Internal Medicine; Visit Provider Obstetrics & Gynecology
DX: N93.9 Abnormal uterine and vaginal bleeding, unspecified (principal); Z30.430 Encounter for insertion of intrauterine contraceptive device
CPT/HCPCS: 58300; 99213

== ENCOUNTER → 2024-02-08 12:46 | Outpatient (BNVA) | payer BC, SELFPAY | PROVIDERS: PCP Internal Medicine; Visit Provider Obstetrics & Gynecology | DX: Z30.430 Encounter for insertion of intrauterine contraceptive device (principal); N93.9 Abnormal uterine and vaginal bleeding, unspecified | CPT/HCPCS: 58300; J7298 ==

== ENCOUNTER 2024-02-27 11:42 | Outpatient (REF) | payer BC, SELFPAY ==
[2024-02-28 08:34] LABS: Immunoglobulin A 346 mg/dL (47-310)
[2024-02-28 18:34] LABS: Transglutaminase Ab IgG <1.0 U/mL; Transglutaminase IgA <1.0 U/mL
[2024-02-28 18:43] LABS: Gliadin Deamidated IgA Ab 4.2 U/mL; Gliadin Deamidated IgG Ab 2.9 U/mL
[2024-03-10 14:23] LABS: Endomysial IgA Antibody Negative (Negative)
== END 2024-02-27 11:43 | disposition home or self-care (01) ==
LOC: HO.10HDL 11:42
PROVIDERS: Visit Provider Internal Medicine
DX: K52.9 Noninfective gastroenteritis and colitis, unspecified (principal)
CPT/HCPCS: 36415; 82784; 86231; 86258; 86364

== ENCOUNTER 2024-05-15 11:04 | Outpatient (AMB) | payer BC, SELFPAY ==
[2024-05-15 11:09] VITALS: BP 110/80; BMI 29.0
--- NOTE | 2024-05-15 11:09 | MHC.OFFVIS ---
Vital Signs 05/15/24 11:09 Height 5 ft 3 in Weight 164 lb BMI 29.0 BP 110/80 Blood Pressure Location Lt brachial Position Sitting Intake Visit Reasons: 3 month emb/IUD check Allergies No Known Allergies Allergy (Verified 05/15/24 11:17) HPI Comments Details: The patient is presenting for 3 months IUD an repeat EMB . The patient has no complaints . [facility] Medical History Epidermal cyst Hyperlipidemia Surgical History H/O breast augmentation Family History Father HTN (hypertension) Heart attack Mother Lung cancer Bone cancer Paternal Uncle Heart attack Maternal Grandfather Lung cancer Maternal Aunt Ovarian cancer Family/Other Brain cancer Lung cancer Social History Household Members Other:: brother Housing: House Alcohol intake: current Alcohol intake frequency: a few times a week Patient Tobacco Use Status: Never used Tobacco Current occupational status: employed Current occupation: [employer] Sexual orientation: Straight/Heterosexual Gender identity: Female Female Reproductive History Menstrual Age of Menarche: 10 Review of Systems Const All systems reviewed & are unremarkable except as noted in HPI and below Physical Exam Vital Signs: Last Vital Signs BP 110/80 05/15/24 11:09 BMI result Body Mass Index 29.0 General: Yes no CVA tenderness External Female Exam: normal external appearance and normal appearance of the urethra Speculum Exam - Vagina: normal appearance of the vagina, normal palpation, no lesions and no masses Speculum Exam - Cervix: normal appearance of the cervix, normal palpation, no lesions, no masses, nontender and Other cervical findings present (IUD string in place) Bimanual exam- vagina & uterus: normal bimanual exam, normal palpation, uterine size normal, normal palpation, uterine shape normal, No Cervical tenderness present and non-tender Bimanual Exam- Adnexa, other: normal adnexae Back/Spine/Pelvis Back: no CVA tenderness Office Procedures Endometrial Biopsy Details: The patient was counseled regarding the indication and benefits of endometrial sampling to rule out endometrial pathology including not limited to endometrial hyperplasia or endometrial cancer and others; The alternatives (Either do nothing vs. hysteroscopy D&C) & the risks were discussed with the patient including but not limited: pain, uterine perforation, bleeding, infection, possible injury to bladder, bowel, ureter, possible need for blood transfusion with all its possible risks. The patient verbalized understanding all questions answered and signed consent. Urine test done in the office was negative The patient was placed into the dorsal lithotomy position; a speculum was inserted in the vagina. Using aseptic technique for the procedure, the cervix was cleansed with Betadine. The anterior lip of the cervix was grasped with a single tooth tenaculum. The uterus was sounded to 7 cm with a 4 mm Pipelle was used. Tissues samples were obtained and placed in formalin, in a patient labeled container and sent to the pathology department. At the end of the procedure, there was minimal bleeding noted The patient tolerated the procedure well and was discharged in good condition with the following instructions: Nothing in the vagina until the bleeding stops. No sex until the bleeding stops, to call if any of the following occurs: fever (>100.4), flu-like symptoms, abdominal pain, heavy bleeding, four smelling vaginal discharge. The patient was instructed to schedule a Follow up appointment in 2 weeks to discuss pathology results of the biopsy and treatment options. This note was generated with a voice recognition program. Some errors may have been overlooked during the review of this note. Sometimes these errors may affect the content or meaning of a given sentence. [id number] Biopsy Results AMB Test Urine AMB Test Urine Negative Last Edit by Bryanna Michel CMA on 05/15/24 11:18 Results Reviewed Results Reviewed: Laboratory Last Values [facility]st Clinic Negative 05/15/24 11:18 Assessment & Plan Assessment & Plan (1) Abnormal uterine bleeding (AUB): Comment: Proliferative endometrium on EMB pathology Code(s): N93.9 - Abnormal uterine and vaginal bleeding, unspecified Category: Medical Plan: EMB done, see procedure note (2) IUD check up: Code(s): Z30.431 - Encounter for routine checking of intrauterine contraceptive device Category: Medical Plan: UPT done in the office was negative. Discussed with the patient the finding on physical exam, IUD string in place, the patient was reassured. Instructions given to patient to call in case of temperature above 100.4, severe cramping/pelvic pain, abnormal discharge or abnormal uterine bleeding . Otherwise follow-up at her annual exam appointment. All questions answered, the patient verbalized understanding. Orders: Orders AMB HCG Urine Test Today Z32.02 - Encounter for test, result negative Surgical Today N93.9 - Abnormal uterine and vaginal bleeding, unspecified AMB Endometrial Biopsy Today N93.9 - Abnormal uterine and vaginal bleeding, unspecified Coding Level of Care Code Procedure Only Diagnoses Abnormal uterine bleeding (AUB) N93.9 IUD check up Z30.431 CPT Codes Endometrial Biopsy - CPT: 04285-Ofwrpohmfuo Biopsy ([id number])
== END 2024-05-15 11:35 | disposition home or self-care (01) ==
LOC: HO.HWS 11:04
PROVIDERS: PCP Internal Medicine; Visit Provider Obstetrics & Gynecology
DX: N93.9 Abnormal uterine and vaginal bleeding, unspecified (principal); Z30.431 Encounter for routine checking of intrauterine contraceptive device; Z32.02 Encounter for pregnancy test, result negative
CPT/HCPCS: 58100

== ENCOUNTER 2024-05-15 11:04 | Outpatient (REF) | payer BC, SELFPAY | END 2024-05-15 11:05 | disposition home or self-care (01) | LOC: HO.LNP 11:04 | PROVIDERS: PCP Internal Medicine; Visit Provider Obstetrics & Gynecology | DX: N93.9 Abnormal uterine and vaginal bleeding, unspecified (principal); Z30.431 Encounter for routine checking of intrauterine contraceptive device; Z32.02 Encounter for pregnancy test, result negative | CPT/HCPCS: 58100; 81025; 88305 ==

== ENCOUNTER 2024-06-14 07:26 | Day surgery (SDC) | payer BC, SELFPAY ==
[2024-06-12 14:44] VITALS: BMI 29.9
--- NOTE | 2024-06-13 09:53 | P.CONAN_ITS ---
Documented by User: Lyndsey Ledesma NP 06/13/24 09:55 HPI - Anesthesia Eval Consult details Narrative: 53yo F for Colonoscopy PMFSH Active Problems Active Problems: All Active Problems IUD check up (Acute) Fatigue (Acute) Depression (Acute) High cholesterol (Acute) Hypertension (Acute) Endometrial polyp (Acute) Endocervical polyp (Acute) Breast lump (Acute) Abnormal uterine bleeding (AUB) (Acute) Past Medical History Medical History Epidermal cyst Hyperlipidemia Family History Family History Father HTN (hypertension) Heart attack Mother Lung cancer Bone cancer Paternal Uncle Heart attack Maternal Grandfather Lung cancer Maternal Aunt Ovarian cancer Family/Other Brain cancer Lung cancer Family history of problems with anesthesia: No Surgical History Surgical History Hx of dilation and curettage H/O breast augmentation History of Problems with Anesthesia: No Social History Social History (Updated 06/12/24 @ 14:44 by Mayelin Camacho RN) Household Members Other:: brother Housing: House Alcohol intake: current Alcohol intake frequency: holidays/special occasions only Patient Tobacco Use Status: Never used Tobacco Use of substances other than those prescribed or required for medical reasons: No Have you been hit, kicked, punched, or otherwise hurt by someone within the past year? If so, by whom?: No Are you DNR?: No Advance Directives: No Advance Directives Information Provided: Yes Recently lost weight without trying: No Nutrition Risks: No Nutritional Risk Current occupational status: employed Current occupation: [employer] Sexual orientation: Straight/Heterosexual Gender identity: Female Meds Allergies Allergy/AdvReac Type Severity Reaction Status Date / Time No Known Allergies Allergy Verified 06/14/24 07:00 Home Medications ?Medication ?Instructions ?Recorded ?Confirmed ?Last Taken ?Type atorvastatin 40 mg tablet 40 mg PO DAILY 12/06/23 06/14/24 06/12/24 History sertraline 50 mg tablet 50 mg PO DAILY 12/06/23 06/14/24 06/12/24 History Exam Height,Weight and Vital Signs: Height 5 ft 3 in Weight 76.657 kg Assessment and Plan Assessment Anesthesia Assessment: Chart Reviewed Final Anesthetic Review Family History of Problems with Anesthesia: No History of Problems with Anesthesia: No Documented by User: Gonzales Richards MD 06/14/24 08:58 [facility] Past Medical History Medical History Epidermal cyst Hyperlipidemia Family History Family History Father HTN (hypertension) Heart attack Mother Lung cancer Bone cancer Paternal Uncle Heart attack Maternal Grandfather Lung cancer Maternal Aunt Ovarian cancer Family/Other Brain cancer Lung cancer Surgical History Surgical History Hx of dilation and curettage H/O breast augmentation Social History Social History (Updated 06/12/24 @ 14:44 by Mayelin Camacho RN) Household Members Other:: brother Housing: House Alcohol intake: current Alcohol intake frequency: holidays/special occasions only Patient Tobacco Use Status: Never used Tobacco Use of substances other than those prescribed or required for medical reasons: No Have you been hit, kicked, punched, or otherwise hurt by someone within the past year? If so, by whom?: No Are you DNR?: No Advance Directives: No Advance Directives Information Provided: Yes Recently lost weight without trying: No Nutrition Risks: No Nutritional Risk Current occupational status: employed Current occupation: [employer] Sexual orientation: Straight/Heterosexual Gender identity: Female Meds Allergies Allergy/AdvReac Type Severity Reaction Status Date / Time No Known Allergies Allergy Verified 06/14/24 07:00 Home Medications ?Medication ?Instructions ?Recorded ?Confirmed ?Last Taken ?Type atorvastatin 40 mg tablet 40 mg PO DAILY 12/06/23 06/14/24 06/12/24 History sertraline 50 mg tablet 50 mg PO DAILY 12/06/23 06/14/24 06/12/24 History Exam Airway Mallampati Class: II TM Dist: <=3cm Neck ROM: Full Loose/Missing/Broken Teeth: No Heart: ok Lungs: ok Assessment and Plan Assessment Anesthesia Assessment: Anesthesia Plan Discussed Final Anesthetic Review ASA Class: II Final Preanesthetic Review: No Changes in Pt Med Stat, Meds/Allgs Chart Reviewed, Consent Obtained/Reviewed and Anes Risks/Benef Reviewed Patient Risk: Low Procedure Risk: Low Anesthetic Plan Anesthetic Plan: MAC: and Agree w/ Assess. and Plan Disposition: Standard PACU
[2024-06-14 07:42] VITALS: BMI 28.7
[2024-06-14] MEDS: Lactated Ringers 1,000 ML 100 ML IVCONT (08:05)
[2024-06-14 08:06] VITALS: BP 143/80; PULSE 84; RESP 16; TEMP 36.6; O2SAT 97
[2024-06-14 09:17] VITALS: BP 114/71; PULSE 77; RESP 17; TEMP 36.6; O2SAT 97
--- NOTE | 2024-06-14 09:19 | P.BOP_ITS ---
Brief Operative Note Date of Service: 06/14/24 Pre-op diagnosis: Screening Post-op diagnosis: other (Colon polyp) Procedure: Colonoscopy to the cecum and TI with biopsies, and bx/removal of polyp Surgeon: Toni Baer MD Anesthesia: MAC Was an Alum Plant Operator used for this Procedure?: No Estimated blood loss (mL): 2.0 Pathology: other (A. Ascending colon B. Descending colon C. Polyp at 15cm) Condition: stable Disposition: PACU
--- NOTE | 2024-06-14 09:30 | OP_ITS ---
DATE OF SERVICE: 06/14/2024 SURGEON: Toni Baer MD INDICATIONS: The patient presents for evaluation of colorectal cancer screening and intermittent diarrhea. Full consent has been obtained from her for this, including risks of bleeding and perforation. PREOPERATIVE DIAGNOSIS: POSTOPERATIVE DIAGNOSIS: PROCEDURE PERFORMED: Colonoscopy to the cecum and terminal ileum with biopsies and biopsy removal of polyp. ESTIMATED BLOOD LOSS: COMPLICATIONS: ANESTHESIA: Monitored anesthesia care. ASSISTANTS: SPECIMENS: PREOPERATIVE DIAGNOSES: Colorectal cancer screening and intermittent diarrhea. POSTOPERATIVE DIAGNOSES: Colorectal cancer screening and intermittent diarrhea, small colon polyp, rule out microscopic colitis, diverticulosis and internal hemorrhoids. DESCRIPTION OF PROCEDURE: The patient was placed in the left lateral decubitus position. The digital rectal exam revealed no abnormalities. The Olympus video pediatric colonoscope was entered into the rectum and advanced easily to the cecum. Once in the cecum, I did identify normal-appearing cecal pouch with appendiceal orifice and a normal-appearing ileocecal valve. The terminal ileum was cannulated and appeared normal. The scope was withdrawn back in the colon. The entire cecum and ileocecal valve appeared normal. The scope was slowly withdrawn assessing all mucosal surfaces carefully. Preparation was excellent. At 15 cm, there was a flat, approximately 3 mm probable hyperplastic polyp, which was biopsied and completely removed with cold biopsy forceps. I did not visualize any other polyps, colitis, nor angiodysplasias. Random biopsies were obtained in the ascending and descending colon. There was a mild amount of sigmoid diverticulosis. In the rectum, scope was retroflexed visualizing some internal hemorrhoids, but no other pathology. The rectal mucosa appeared normal. The scope was straightened and withdrawn from the patient. She tolerated the procedure well and was returned to recovery area in stable condition. IMPRESSION: 1. Small colon polyp. 2. Rule out microscopic colitis. 3. Diverticulosis. 4. Internal hemorrhoids. PLAN: The results of biopsies will be checked. Assuming the polyp is a hyperplastic polyp, I would recommend a followup coloscopy in 10 years. If it happens to be a tubular adenoma, I would recommend a followup coloscopy in 5 years. She will otherwise see me on a p.r.n. basis. MD SHAVON Cobb/NAJMA / [phone]
[2024-06-14 09:32] VITALS: BP 148/87; PULSE 89; RESP 16; TEMP 36.6; O2SAT 97
--- OUTSIDE RECORDS SUMMARY | 2024-06-19 04:48 | XMS_ITS ---
Author Organization [facility] Address [address] [place] [address] Care Team Providers Care Peel Oven Tender Name Role Phone Vivienne Bonilla Primary Care Provider Toni Dillon Unavailable [phone] ALLERGIES No Known Allergies REASON FOR VISIT Patient presents today for a COLON SCREENING MEDICATIONS Medication SIG (Take, Route, Frequency, Duration) Notes Start Date End Date Status Sertraline HCl 50 MG Oral for 90 Active Atorvastatin Calcium 40 MG TAKE 1 TABLET BY MOUTH EVERY DAY Oral for 90 Active SOCIAL HISTORY Tobacco Use: Social History Observation Description Date Details (start date - stop date) Never Smoker NA - NA Sex Assigned At : Social History Observation Description Sex Assigned At Unknown Tobacco Use/Smoking Question Answer Notes Patient is a nonsmoker Alcohol Screen Question Answer Notes Did you have a drink contain ing alcohol in the past year? Yes How often did you have a dri nk containing alcohol in the past year? Monthly or less (1 point) How many drinks did you have on a typical day when you were drinking in the past year? 1 or 2 drinks (0 point) How often did you have 6 or more drinks on one occasion in the past year? Never (0 point) Points 1 Interpretation Negative PROBLEMS Problem Type ICD Code Onset Dates Problem Status W/U Status Risk SNOMED Code Notes Problem Colon cancer screening (Z12.11) Active confirmed Colon cancer screening (507255513) Problem Chronic diarrhea (K52.9) Active confirmed Chronic diarrhea (775345175) VITAL SIGNS BMI 29.93 kg/m2 02/27/2024 Blood pressure systolic 00 mm Hg 02/27/20 24 Blood pressure diastolic 00 mm Hg 024 Height 5 ft 3 in in 02/27/2024 Weight 169 lbs 02/27/2024 Encounters Encounter Location Date Provider Diagnosis [facility] [address] [place] [address] 02/27/2024 Toni Baer Colon cancer screening Z12.11 and Chronic diarrhea K52.9 ASSESSMENTS Encounter Date Diagnosis Assessment Notes Treatment Notes Treatment Clinical Notes 02/27/2024 Colon cancer screening (ICD-10 - Z12.11) 02/27/2024 Chronic diarrhea (ICD-10 - K52.9) Try using some Imodium as needed, or even every morning and afternoon to help prevent the diarrhea PLAN OF TREATMENT Treatment Notes Assessment Notes Chronic diarrhea Try using some Imodi um as needed, or even every morning and afternoon to help prevent the diarrhea Pending Test Test Name Order Date CELIAC PANEL #10 02/27/2024 Future Test Test Name Order Date COLONOSCOPY 02/27/2024 Next Appt Details Follow Up: prn, Reason: Progress Notes * Examination Category Sub-Category Detail Notes General Examination GENERAL APPEARANCE: pleasant , well nourished, well developed, in no acute distress HEAD: EYES: sclera non-icteric EARS: NOSE: THROAT: NECK/THYROID: no cervical lymphade nopathy, neck supple HEART: S1, S2 normal CHEST: LUNGS: clear to auscultatio n bilaterally ABDOMEN: normal bowel sounds, no guarding or rigidity, no guarding or rigidity, no masses palpable, soft, nontender, nondistended NEUROLOGIC: alert and oriented SKIN: nonjaundiced, no spi tima angiomata EXTREMITIES: no edema PERIPHERAL PULSES: BACK: BREASTS: MUSCULOSKELETAL: MALE GENITOURINARY: LYMPH NODES: RECTAL EXAM: FEMALE GENITOURINARY: ORAL CAVITY: mucosa moist
--- OUTSIDE RECORDS SUMMARY | 2024-06-19 04:48 | XMS_ITS ---
Author Organization [facility] Address [address] [place] [address] Care Team Providers Care Van Owner Operator Name Role Phone Vivienne Bonilla Primary Care Provider Unavailab Toni Gottlieb [phone] REASON FOR VISIT screening Encounters Encounter Location Date Provider Diagnosis [facility] [place] Out[place] [address] [place], [place] [phone] 06/14/2024 Toni Baer PLAN OF TREATMENT No Information
--- OUTSIDE RECORDS SUMMARY | 2024-06-19 04:48 | XMS_ITS | Patient Health Record ---
Author Organization [facility] Address [address] [place] [address] Care Team Providers Care Gas Load Dispatcher Name Role Phone DionnefilomenaVivienne Primary Care Provider UnavailToni Medina [phone] ALLERGIES No Known Allergies RESULTS Component Value Reference Range Notes Immunoglobulin A Reviewed date:06/13/2024 06:31:14 PM Interpretation: Performing Lab:[facility], [address] [place] [phone] Notes/Report: Immunoglobulin A 346 47-310 mg/dL THIS TEST WAS PERFORMED AT: [facility] [address] [place] [phone] LIDIA HOWARD MD Transglutaminase Ab IgG Reviewed date:03/15/2024 06:26:46 PM Interpretation: Performing Lab:[facility], [address] [place] [phone] Notes/Report: Transglutaminase Ab IgG <1.0 Value Interpretation ----- <15.0 Antibody not detected > or = 15.0 Antibody detected THIS TEST WAS PERFORMED AT: [facility] [address] [place] [phone] LIDIA HOWARD MD Transglutaminase IgA Reviewed date:03/15/2024 06:27:01 PM Interpretation: Performing Lab:[facility], [address] [place] [phone] Notes/Report: Transglutaminase IgA <1.0 Value Interpretation ----- <15.0 Antibody not detected > or = 15.0 Antibody detected THIS TEST WAS PERFORMED AT: [facility] [address] [place] [phone] LIDIA HOWARD MD Gliadin Ab Panel Reviewed date:03/15/2024 06:27:09 PM Interpretation: Performing Lab:[facility], [address] [place] [phone] Notes/Report: Gliadin Deamidated IgA Ab 4.2 Value Interpretation ----- <15.0 Antibody not detected > or = 15.0 Antibody detected Gliadin Deamidated IgG Ab 2.9 Value Interpretation ----- <15.0 Antibody not detected > or = 15.0 Antibody detected THIS TEST WAS PERFORMED AT: [facility] [address] [place] [phone] LIDIA HOWARD MD Endomysial IgA rflx Titer Reviewed date:03/15/2024 06:27:17 PM Interpretation: Performing Lab:[facility], [address] [place] [phone] Notes/Report: Endomysial IgA Antibody Negative Negative THIS TEST WAS PERFORMED AT: [facility]/[address] [phone] MAHAD GRIGGS MD,PHD Endomysial Titer TNP Pathology (Not yet reviewed by provider) Interpretation: Performing Lab:[facility], [address] [place] [phone] Notes/Report: REASON FOR REFERRAL No Information MEDICATIONS Medication SIG (Take, Route, Frequency, Duration) [...] screening (Z12.11) Active confirmed Colon cancer screening (986692869) Problem Chronic diarrhea (K52.9) Active confirmed Chronic diarrhea (930781108) VITAL SIGNS Blood pressure diastolic 00 mm Hg 02/27/2024 Height 5 ft 3 in in 02/27/2024 Blood pressure systolic 00 mm Hg 02/27/2024 Weight 169 lbs 02/27/2024 BMI 29.93 kg/m2 02/27/2024 Encounters Encounter Location Date Provider Diagnosis [facility] [place] [address] [place], [place] [phone] 06/14/2024 Toni Baer [facility] [address] [place] [address] 02/27/2024 Toni Baer Colon cancer screening Z12.11 and Chronic diarrhea K52.9 ASSESSMENTS Encounter Date Diagnosis Assessment Notes Treatment Notes Treatment Clinical Notes 02/27/2024 Colon cancer screening (ICD-10 - Z12.11) 02/27/2024 Chronic diarrhea (ICD-10 - K52.9) Try using some Imodium as needed, or even every morning and afternoon to help prevent the diarrhea PLAN OF TREATMENT Pending Test Test Name Order Date CELIAC PANEL #10 02/27/2024 Pathology 06/14/2024 Future Test Test Name Order Date COLONOSCOPY 02/27/2024 Insurance Providers Payer Name Payer Address Payer Phone Subscriber Number Group Number Insured Name Patient Relationship to Insured Coverage Start Date Coverage End Date [facility] [address] [place] [address] [phone] [id number] HECTOR ORTIZ Self - patient is the insured MEDICAL (GENERAL) HISTORY Medical History History ICD Code Denies NM,DM,CVA,Lung disease,renal dise ase Hyperlipidemia Depression Surgical History Surgery Date(Month/Year) D&C 2023
== END 2024-06-14 09:50 | disposition home or self-care (01) ==
PROVIDERS: PCP Internal Medicine; Visit Provider Internal Medicine
PROC: 0DJD8ZZ Inspection of Lower Intestinal Tract, Via Natural or Artificial Opening Endoscopic (ICD-10-PCS; CPT 45378; principal; 2024-06-14 08:30)
DX: Z12.11 Encounter for screening for malignant neoplasm of colon (principal); K63.5 Polyp of colon; K57.30 Diverticulosis of large intestine without perforation or abscess without bleeding; K64.8 Other hemorrhoids; E78.5 Hyperlipidemia, unspecified; Z79.02 Long term (current) use of antithrombotics/antiplatelets
CPT/HCPCS: 45380; 88305; J2003; J2704

== ENCOUNTER 2024-06-26 15:34 | Outpatient (AMB) | payer BC, SELFPAY ==
--- NOTE | 2024-06-26 15:35 | A.OFFVIS_ITS ---
Intake Visit Reasons: TV emb results Allergies No Known Allergies Allergy (Verified 06/14/24 07:00) HPI Comments Details: The patient schedule telehealth visit after endometrial biopsy. The patient has no complaints, no vaginal bleeding, no feverishness chills or abdominal pain. The endometrial biopsy pathology report showed the following: Endometrium, biopsy: Inactive endometrium with pseudodecidual change consistent with exogenous progestin; no atypia or hyperplasia identified. PFSH Medical History Epidermal cyst Hyperlipidemia Surgical History Hx of dilation and curettage H/O breast augmentation Family History Father HTN (hypertension) Heart attack Mother Lung cancer Bone cancer Paternal Uncle Heart attack Maternal Grandfather Lung cancer Maternal Aunt Ovarian cancer Family/Other Brain cancer Lung cancer Social History Household Members Other:: brother Housing: House Alcohol intake: current Alcohol intake frequency: holidays/special occasions only Patient Tobacco Use Status: Never used Tobacco Current occupational status: employed Current occupation: [employer] Sexual orientation: Straight/Heterosexual Gender identity: Female Female Reproductive History Menstrual Age of Menarche: 10 Review of Systems Const All systems reviewed & are unremarkable except as noted in HPI and below Reports as per HPI and Reports no additional complaints GI Reports no additional complaints Reports no additional complaints Telehealth Telehealth Telehealth Platform: Telephone Location of provider rendering services: practice address Location of patient: address on file Patient Identification confirmed using: Name, : Yes Telehealth method: video Patient verbally consented to treatment: Yes Patient verbally consented to billing insurance company: Yes Patient informed of any privacy concerns related to visit: Yes Assessment & Plan Assessment & Plan (1) Abnormal uterine bleeding (AUB): Comment: 01/30 Proliferative endometrium on EMB pathology 03/02 Mirena IUD inserted 06/02 Inactive endometrium Code(s): N93.9 - Abnormal uterine and vaginal bleeding, unspecified Category: Medical Plan: Discussed with the patient the results of the endometrial biopsy pathology, the sensitivity, specificity, false-positive false-negative rate were discussed with the patient. Instructions given the patient to schedule a repeat EMB in 4 months and were to call in case of abnormal uterine bleeding prior to that date. All questions answered, the patient verbalized understanding. I spent a total of 20 minutes reviewing the chart, talking to the patient via video and documenting in the medical record. Coding Level of Care Code Tele Est Pt Level 3 (93899) Diagnoses Abnormal uterine bleeding (AUB) N93.9
--- OUTSIDE RECORDS SUMMARY | 2024-06-26 16:06 | XMS_ITS ---
Author Organization [facility] Address [address] [place] [address] Care Team Providers Care Offshore Diver Name Role Phone Vivienne Bonilla Primary Care Provider Unavailab Toni Gottlieb Unavailable [phone] REASON FOR VISIT screening PROBLEMS Problem Type ICD Code Onset Dates Problem Status W/U Status Risk SNOMED Code Notes Problem Diverticulosis of large intestine without perforation or abscess without bleeding (K57.30) Active confirmed Diverticul ar disease of colon (891269235) Encounters Encounter Location Date Provider Diagnosis [facility] [place] Outpatient [address] [place], [place] [phone] 06/14/2024 Toni Baer Colon cancer scree gianfranco Z12.11 ; Colon polyps K63.5 ; Diverticulosis of large intestine without perforation or abscess without bleeding K57.30 and Other hemorrhoids K64.8 ASSESSMENTS Encounter Date Diagnosis Assessment Notes Treatment Notes Treatment Clinical Notes 06/14/2024 Colon cancer screening (ICD-10 - Z12.11) 06/14/2024 Colon polyps (ICD-10 - K63.5) 06/14/2024 Diverticulosis of large intestine without perforation or abscess without bleeding (ICD-10 - K57.30) 06/14/2024 Other hemorrhoids (ICD-10 - K64.8) PLAN OF TREATMENT No Information
--- OUTSIDE RECORDS SUMMARY | 2024-06-26 16:06 | XMS_ITS ---
Author Organization [facility] Address [address] [place] [address] Care Team Providers Care Hyperbaric Tech Name Role Phone Vivienne Bonilla Primary Care Provider Toni Dillon Unavailable [phone] ALLERGIES No Known Allergies REASON FOR VISIT [...] screening (Z12.11) Active confirmed Colon cancer screening (242954693) Problem Chronic diarrhea (K52.9) Active confirmed Chronic diarrhea (668411622) VITAL SIGNS BMI 29.93 kg/m2 02/27/2024 Blood pressure systolic 00 mm Hg 02/27/20 24 Blood pressure diastolic 00 mm Hg 024 Height 5 ft 3 in in 02/27/2024 Weight 169 lbs 02/27/2024 Encounters Encounter Location Date Provider Diagnosis [facility] [address] [place] [address] 02/27/2024 Toni Baer Colon cancer screening Z12.11 [...]
--- OUTSIDE RECORDS SUMMARY | 2024-06-26 16:06 | XMS_ITS | Patient Health Record ---
Author Organization [facility] Address [address] [place] [address] Care Team Providers Care Chief Privacy Officer Name Role Phone DionnefilomenaVivienne Primary Care Provider UnavailToni Medina [phone] ALLERGIES No Known Allergies RESULTS Component Value Reference Range Notes Immunoglobulin A Reviewed date:06/13/2024 06:31:14 PM Interpretation: Performing Lab:[facility], [address] [place] [phone] Notes/Report: Immunoglobulin A 346 47-310 mg/dL THIS TEST WAS PERFORMED AT: [facility] [address] [place] [phone] LIDIA HOWARD MD Transglutaminase Ab IgG Reviewed date:03/15/2024 06:26:46 PM Interpretation: Performing Lab:[facility], [address] [place] [phone] Notes/Report: Transglutaminase Ab IgG <1.0 Value Interpretation ----- <15.0 Antibody not detected > or = 15.0 Antibody detected THIS TEST WAS PERFORMED AT: [facility] [address] [place] [phone] LIDIA HOWARD MD Transglutaminase IgA Reviewed date:03/15/2024 06:27:01 PM Interpretation: Performing Lab:[facility], [address] [place] [phone] Notes/Report: Transglutaminase IgA <1.0 Value Interpretation ----- <15.0 Antibody not detected > or = 15.0 Antibody detected THIS TEST WAS PERFORMED AT: [facility] [address] [place] [phone] LIDIA HOWARD MD Gliadin Ab Panel Reviewed date:03/15/2024 06:27:09 PM Interpretation: Performing Lab:[facility], [address] [place] [address] Notes/Report: Gliadin Deamidated IgA Ab 4.2 Value Interpretation ----- <15.0 Antibody not detected > or = 15.0 Antibody detected Gliadin Deamidated IgG Ab 2.9 Value Interpretation ----- <15.0 Antibody not detected > or = 15.0 Antibody detected THIS TEST WAS PERFORMED AT: [facility] [address] [place] [phone] LIDIA HOWARD MD Endomysial IgA rflx Titer Reviewed date:03/15/2024 06:27:17 PM Interpretation: Performing Lab:[facility], [address] [place] [address] Notes/Report: Endomysial IgA Antibody Negative Negative THIS TEST WAS PERFORMED AT: [employer]/[address] [address] MAHAD GRIGGS MD,PHD Endomysial Titer TNP Pathology (Not yet reviewed by provider) Interpretation: Performing Lab:[facility], [address] [place] [phone] Notes/Report: REASON FOR REFERRAL No Information MEDICATIONS [...] Colon cancer screening (Z12.11) Active confirmed Colon can cer screening (138208630) Problem Chronic diarrhea (K52.9) Active confirmed Chronic diarrhea (108030209) Problem Diverticulosis of large intestine without perforation or abscess without bleeding (K57.30) Active confirmed Diverticul ar disease of colon (229614621) VITAL SIGNS Blood pressure diastolic 00 mm Hg 02/27/2024 Height 5 ft 3 in in 02/27/2024 Blood pressure systolic 00 mm Hg 02/27/2024 Weight 169 lbs 02/27/2024 BMI 29.93 kg/m2 02/27/2024 Encounters Encounter Location Date Provider Diagnosis [facility] [place] [address] [place] [id number] 06/14/2024 Toni Baer Colon cancer screeni ng Z12.11 ; Colon polyps K63.5 ; Diverticulosis of large intestine without perforation or abscess without bleeding K57.30 and Other hemorrhoids K64.8 [facility] [address] [place] [address] 02/27/2024 Toni Baer Colon cancer screeni ng Z12.11 and Chronic diarrhea K52.9 ASSESSMENTS Encounter Date Diagnosis Assessment Notes Treatment Notes Treatment Clinical Notes 06/14/2024 Colon cancer screening (ICD-10 - Z12.11) 06/14/2024 Colon polyps (ICD-10 - K63.5) 02/27/2024 Colon cancer screening (ICD-10 - Z12.11) 02/27/2024 Chronic diarrhea (ICD-10 - K52.9) Try using some Imodium as needed, or even every morning and afternoon to help prevent the diarrhea 06/14/2024 Diverticulosis of large intestine without perforation or abscess without bleeding (ICD-10 - K57.30) 06/14/2024 Other hemorrhoids (ICD-10 - K64.8) PLAN OF TREATMENT Pending Test Test Name Order Date CELIAC PANEL #10 02/27/2024 Pathology 06/14/2024 Future Test Test Name Order Date COLONOSCOPY 02/27/2024 Insurance Providers Payer Name Payer Address Payer Phone Subscriber Number Group Number Insured Name Patient Relationship to Insured Coverage Start Date Coverage End Date [facility] [address] [place] [address] [id number] HECTOR ORTIZ Self - patient is the insured MEDICAL (GENERAL) HISTORY Medical History History ICD Code Denies [place],DM,CVA,Lung disease,renal dise ase Hyperlipidemia Depression Surgical History Surgery Date(Month/Year) D&C 2023
== END 2024-06-26 15:53 | disposition home or self-care (01) ==
LOC: HO.HWS 15:34
PROVIDERS: PCP Internal Medicine; Visit Provider Obstetrics & Gynecology
DX: N93.9 Abnormal uterine and vaginal bleeding, unspecified (principal)
CPT/HCPCS: 99213

== ENCOUNTER 2024-08-28 11:17 | Outpatient (REF) | payer BC, SELFPAY ==
[2024-08-28 11:34] LABS: MANUAL DIFF FLAG NO
--- OUTSIDE RECORDS SUMMARY | 2024-08-28 12:00 | XMS_ITS ---
Author Organization [facility] Address [address] [place] [address] Care Team Providers Care Member Of Technical Staff Name Role Phone Vivienne Bonilla Primary Care Provider Unavailab Toni Gottlieb Unavailable [phone] REASON FOR VISIT screening PROBLEMS Problem Type ICD Code Onset Dates Problem Status W/U Status Risk SNOMED Code Notes Problem Diverticulosis of large intestine without perforation or abscess without bleeding (K57.30) Active confirmed Diverticul ar disease of colon (725396983) Encounters Encounter Location Date Provider Diagnosis [facility] [place] [address] [place], [place] [phone] 06/14/2024 Toni Baer Colon cancer scree gianfranco [...]
--- OUTSIDE RECORDS SUMMARY | 2024-08-28 12:00 | XMS_ITS | Patient Health Record ---
Author Organization [facility] Address [address] [place] [address] Care Team Providers Care Scow Captain Name Role Phone DionnefilomenaVivienne Primary Care Provider UnavailToni Medina [phone] ALLERGIES No Known Allergies RESULTS Component Value Reference Range Notes Immunoglobulin A Reviewed date:06/13/2024 06:31:14 PM Interpretation: Performing Lab:[facility], [address] [place] [phone] Notes/Report: Immunoglobulin A 346 47-310 mg/dL THIS TEST WAS PERFORMED AT: [facility] [address] [place] [phone] LIDIA HOWARD MD Transglutaminase Ab IgG Reviewed date:03/15/2024 06:26:46 PM Interpretation: Performing Lab:[facility], [address] [place] [phone] Notes/Report: Transglutaminase Ab IgG <1.0 Value Interpretation ----- <15.0 Antibody not detected > or = 15.0 Antibody detected THIS TEST WAS PERFORMED AT: [facility] [address] [place] [phone] LIDIA HOWARD MD Transglutaminase IgA Reviewed date:03/15/2024 06:27:01 PM Interpretation: Performing Lab:[facility], [address] [place] [phone] Notes/Report: Transglutaminase IgA <1.0 Value Interpretation ----- <15.0 Antibody not detected > or = 15.0 Antibody detected THIS TEST WAS PERFORMED AT: [facility] [address] [place] [phone] LIDIA HOWARD MD Gliadin Ab Panel Reviewed date:03/15/2024 06:27:09 PM Interpretation: Performing Lab:[facility], [address] [place] [phone] Notes/Report: Gliadin Deamidated IgA Ab 4.2 Value Interpretation ----- <15.0 Antibody not detected > or = 15.0 Antibody detected Gliadin Deamidated IgG Ab 2.9 Value Interpretation ----- <15.0 Antibody not detected > or = 15.0 Antibody detected THIS TEST WAS PERFORMED AT: [facility] [address] [place] [phone] LIDIA HOWARD MD Endomysial IgA rflx Titer Reviewed date:03/15/2024 06:27:17 PM Interpretation: Performing Lab:[facility], [address] [place] [phone] Notes/Report: Endomysial IgA Antibody Negative Negative THIS TEST WAS PERFORMED AT: [facility]/[address] [address] MAHAD GRIGGS MD,PHD Endomysial Titer TNP Pathology (Not yet reviewed by provider) Interpretation: Performing Lab:[facility], [address] [place] [phone] Notes/Report: REASON FOR REFERRAL No Information MEDICATIONS [...] (Z12.11) Active confirmed Colon can cer screening (428285102) Problem Chronic diarrhea (K52.9) Active confirmed Chronic diarrhea (995525384) Problem Diverticulosis of large intestine without perforation or abscess without bleeding (K57.30) Active confirmed Diverticul ar disease of colon (759329806) VITAL SIGNS Blood pressure diastolic 00 mm Hg 02/27/2024 Height 5 ft 3 in in 02/27/2024 Blood pressure systolic 00 mm Hg 02/27/2024 Weight 169 lbs 02/27/2024 BMI 29.93 kg/m2 02/27/2024 Encounters Encounter Location Date Provider Diagnosis [facility] [place] [address] [place] [id number] 06/14/2024 Toni Baer Colon cancer screeni ng Z12.11 ; Colon polyps K63.5 ; Diverticulosis of large intestine without perforation or abscess without bleeding K57.30 and Other hemorrhoids K64.8 [facility] [address] [place] [address] 02/27/2024 Toni Baer Colon cancer screeni ng [...] Insured Coverage Start Date Coverage End Date [facility] [address] [place] [address] [phone] [id number] HECTOR ORTIZ Self - patient is the insured MEDICAL (GENERAL) HISTORY Medical History History ICD Code Denies [place],DM,CVA,Lung disease,renal dise ase Hyperlipidemia Depression Surgical History Surgery Date(Month/Year) D&C 2023
--- OUTSIDE RECORDS SUMMARY | 2024-08-28 12:00 | XMS_ITS | Clinical Summary ---
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 Role Phone Unavailable Primary Care Provider Unavailabl e Social History Tobacco Use Types Packs/Day Years Used Date Smoking Tobacco: Never Assessed Sex and Gender Information Value Date Recorded Sex Assigned at Not on file Gender Identity Not on file Sexual Orientation Not on file Plan of Treatment Health Maintenance Due Date Last Done Comments Hepatitis C Virus Screening 1968 HIV Screening 1981 DTaP/Tdap/Td Vaccines (1 - Tdap) 09/17/1987 Hepatitis B Vaccines (1 of 3 - 19+ 3-dose series) 09/17/1987 Pneumococcal Vaccines 50+ (1 of 1 - PCV) 2018 Zoster (Shingles) Vaccine (1 of 2) 2018 COVID-19 Vaccine (2023-2 5 season) 2024 Pneumococcal Vaccine: Pediat janet (0-5 Years) and At-Risk Patients (6 to 49 Years) Aged Out No longer eligible b ased on patient's age to complete this topic
--- OUTSIDE RECORDS SUMMARY | 2024-08-28 12:00 | XMS_ITS | Data Portability ---
Author Organization [facility] [address] Address [address] [place] [address] Assessment No assessment recorded. Plan of Treatment Reminders Order Date Submit Date Provider Last Modified By Organization Details Last Modified Time Details Appointments None recorded. Lab urinalysis, dipstick 2022 023 [email or web address] 5 [facility], [address] [place], [address], 3 20:00:21 culture, urine 2022 023 [place] [facility], [address] [place] [address], [place], [address], 3 06:06:02 Referral None recorded. Procedures None recorded. Surgeries None recorded. Imaging None recorded. Medication Orders nitrofurant oin monohydrate /macrocryst als 100 mg capsule 2022 023 [email or web address] 5 [facility]acy #[id number], [address] [place], [address], 3 13:59:50 erythromyci n 5 mg/gram (0.5 %) eye ointment 2022 023 [facility] #[id number], [address] [place], [address], 3 20:00:21 Patient TargetsNo targets recorded. Patient Instructions Encounter Date Encounter Id Patient Instructions Last Modified By Organization Details Last Modified Time 06/02/2023 [id number] Urinary Tract Infection (UTI) in Women: Care Instructions Not available 06/02/2023 20:00:19 styes and chalazia: care instructions [email or web address] Not available 06/02/2023 20:00:19 Drink plenty of fluids. Take the antibiotic and use the eye ointment as prescribed. Apply warm compresses frequently to left eyelids. Do not squeeze, poke or manipulate your lids. Avoid using makeup. Discard current makeup. See printed instructions. You will be contacted when your urine culture report returns. Follow-up with your doctor if no improvement in a few days. Seek Emergency Medical evaluation for any worsening symptoms, particularly for high fever, shaking chills, flank pain, intractable nausea or vomiting, abdominal pain, severe headache, increased swelling/pain/red ness eyelids, direct eye pain or visual disturbance. [email or web address] Not available 06/02/2023 20:03:04 Reason for Referral None Reported. Results Created Date Observation Date Name Description Value Unit Range Abnormal Flag Note LastModifiedBy Organization Detail LastModifiedTime 06/02/2006/04/2023 URINE CULTU RESYED urine culture, routine FINAL REPORT Not Available [facility] ([facility]) [address] [place], [address], 06/05/2023 06:06:02 06/02/2006/04/2023 URINE CULTU RESYED result 1 NO GROWTH Not Available [facility] ([facility]) [address] [place], [address], 06/05/2023 06:06:02 06/02/2006/02/2023 urina lysis , dipst ick Unknown Analyte Light Yellow Not Available [facility] [place], [address], 06/02/2023 19:41:31 06/02/2006/02/2023 urina lysis , dipst ick Unknown Analyte Clear Not Available [facility] [address] [place], [address], 06/02/2023 19:41:31 06/02/20 23 06/02/2023 urina lysis , dipst ick Unknown Analyte Negati ve Not Available [address] [place], [address], 06/02/2023 19:41:31 06/02/20 23 06/02/2023 urina lysis , dipst ick Unknown Analyte Negati ve Not Available [address] [place], [address], 06/02/2023 19:41:31 06/02/2006/02/2023 urina lysis , dipst ick Unknown Analyte Negati ve Not Available [address] [address] [place], [address], 06/02/2023 19:41:31 06/02/2006/02/2023 urina lysis , dipst ick Unknown Analyte <=1.00 5 Not Available [address] [place], [address], 06/02/2023 19:41:31 06/02/2006/02/2023 urina lysis , dipst ick Unknown Analyte Negati ve Not Available [address] [place], [address], 06/02/2023 19:41:31 06/02/20 23 06/02/2023 urina lysis , dipst ick Unknown Analyte 5.5 Not Available [facility] [address] [place], [address], 06/02/2023 19:41:31 06/02/20 23 06/02/2023 urina lysis , dipst ick Unknown Analyte Negati ve Not Available [address] [place], [address], 06/02/2023 19:41:31 06/02/2006/02/2023 urina lysis , dipst ick Unknown Analyte 0.2 E.U./d L Not Available [address] [place], [address], 06/02/2023 19:41:31 06/02/2006/02/2023 urina lysis , dipst ick Unknown Analyte Negati ve Not Available [address] [place], [address], 06/02/2023 19:41:31 06/02/2006/02/2023 urina lysis , dipst ick Unknown Analyte Negati ve Not Available [facility] [address] [place], [address], 06/02/2023 19:41:31 Result Notes None recorded. Problems No Known Problems Medical Equipment None Reported. Allergies No known drug allergies Medications Name Sig Start Date Stop Date Status Note LastModified by Organization Details LastModified Time erythromycin 5 mg/gram (0.5 %) eye ointment APPLY 1 CM RIBBON INTO THE LOWER CONJUNCTIVA L SAC(S) IN THE AFFECTED EYE(S) BY OPHTHALMIC ROUTE 3 TIMES PER DAY 2022 active Not Available Not Available Not Avai lable nitrofuranto in monohydrate/ macrocrystal s 100 mg capsule Take 1 capsule every 12 hours by oral route for 7 days. 2022 active Not Available Not Available Not Avai lable Vitals Date Recorded Body height Body mass index (BMI) Body weight Body temperature Respiratory rate Oxygen saturation Oxygen saturation in Arterial blood by Pulse oximetry Heart rate Systolic blood pressure Diastolic blood pressure Provider Name and Address Organization Details Last Updated DateTime 160.02 cm 27.1 kg/m2 09474.6 3 g 97.8 [degF] 18 /min 98 % 98 % 71 /min 165 mm[Hg] 93 mm[Hg] Danielle Padmaja PA - [facility] 19:42:45 Social History Question Answer Notes LastModified by Organizat ion Details LastModified Time Tobacco Smoking Status Never Smoker [facility]le[facility]ENS Aquino - [facility] 06/02/2023 19:40:45 What Is Your Level Of Alcohol Consumption? Occasional Information not available 06/02/2023 Have You Had A Flu Shot This Season? No Information not available 06/02/2023 Have You Had Direct Contact, Or Contact During Intimacy, With Monkeypox Rash, Scabs, Or Body Fluids From A Person With Monkeypox? No Information not available 06/02/2023 What Was The Date Of Your Most Recent Tobacco Screening? 06/02/2023 Information not available 06/02/2023 Do You Use Any Illicit Or Recreational Drugs? No Information not available 06/02/2023 Have You Recently Traveled Abroad? No Information not available 06/02/2023 Do You Or Have You Ever Used Any Other Forms Of Tobacco Or Nicotine? No Information not available 06/02/2023 Sex: Unknown Functional Status None recorded. Mental Status None recorded. Family History Nothing Reported. Medical History No medical history recorded. Gynecological History Statement/Question Response LMP Unknown Obstetrics History GPAL:G 0 P 0 0 0 0 Past Encounters Encounter ID Performer Location Encounter Start Date Encounter Closed Date Diagnosis/Indication Diagnosis SNOMED-CT Code Diagnosis ICD10 Code Diagnosis Note [id number] [place] [address] [facility] [address] [place] [address] 06/02/2023 19:19:54 06/02/2023 20:03:48 Acute urinary tract infection 142615620 N39.0 Hordeolum externum of upper eyelid of left eye 6920684392 04267 H00.014 Hordeolum externum of lower eyelid of left eye 1625567981 78114 H00.015 Health Concerns Section Related Observation LastModified by Organization Detai ls LastModified Time None Recorded Concern Status LastModified by Organization Details LastModified Time None Recorded Advance Directives Directive None Recorded Payers Encounter Date Sequence Insurance Name Policy Number Policy Hernandez Covered Member ID Hernandez Member ID Guarantor Name 06/02/2023 1 [place] 2 (POS) [id number] Joana Vegas [id number] Joana Vegas Notes Date Note Type Note Provider Name and Address Organization Details Recorded Time 3 text/html Eye problemsReported bypatient.source of patient informationInformation obtained from patient; Patient arrived at Urgent Care ambulatory Location:left; Upper and lower lids. Eye Symptoms:no sensitivity to light; no pain in the eyes; no blurred vision; Redness lid margins at site of styes. Occasional purulent drainage from styes. No conjunctival redness or discharge. Severity:moderate Onset/Timin month. Context:No eye trauma, chemical exposure, foreign body sensation or contact lens use. Uses eyeliner for make-up. Modifying Factors:nothing gives relief anita Aggravating factors:Palpation of left upper and lower lids anita Alleviating factors:nothing helpsUrinary / Promotions Officer Problems-FemaleReported bypatient.source of patient informationInformation obtained from patient; Patient arrived at Urgent Care ambulatory Location:urethral; no radiation Quality:burning Severity:Mild to moderate. Duration:1 week with urination. Onset/Timing:gradual Context:No vaginal discharge or bleeding. No concern regarding STI. Modifying Factors:nothing gives relief Associated Symptoms:no flank pain; no jaundice; no blood in the urine; no vaginal discharge;pain during urination;urgency;urinary frequencyNotes:61 year old female presenting for evaluation of two different problems. She first reports dysuria, urinary frequency and urgency for one week. She noted one episode of blood in her urine last week which resolved. No suprapubic, abdominal, back or flank pain. No fever, chills, nausea, vomiting, diarrhea, vaginal bleeding or discharge. No hx of renal stones. No concern regarding a STI. She also reports having painful styes on her left upper and lower eyelids waxing and waning in severity for one month. The styes occasionally drain purulent material. No direct eye pain or redness. No visual disturbance. No eye trauma, foreign body sensation, chemical exposure or contact lens use. Yadira Cantrell MD [address] [facility] [place], [address], [place] - [facility] 06/03/2023 14:12:57 OBGyn Episode No OBEpisode recorded.
--- OUTSIDE RECORDS SUMMARY | 2024-08-28 12:00 | XMS_ITS ---
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 Name Role Phone Vivienne Bonilla Primary Care Provider Toni Dillon Unavailable [phone] ALLERGIES No Known Allergies REASON FOR VISIT [...] screening (Z12.11) Active confirmed Colon cancer screening (612936448) Problem Chronic diarrhea (K52.9) Active confirmed Chronic diarrhea (742579338) VITAL SIGNS BMI 29.93 kg/m2 02/27/2024 Blood pressure systolic 00 mm Hg 02/27/20 24 Blood pressure diastolic 00 mm Hg 024 Height 5 ft 3 in in 02/27/2024 Weight 169 lbs 02/27/2024 Encounters Encounter Location Date Provider Diagnosis [facility] [address] [place] [address] 02/27/2024 Toni Baer Colon cancer screening Z12.11 [...]
[2024-08-28 12:05] LABS: Basophils Percent Auto 0.6 % (0-2); Eosinophils Absolute Auto 0.2 X10*3/uL (0.0-0.4); Eosinophils Percent Auto 2.3 % (0-4); Hemoglobin 13.9 g/dl (12.0-16.0); Imm Gran Abs Auto 0.02 X10*3/uL (0.00-0.03); Imm Gran Pct Auto 0.3 % (0.0-0.4); Lymphocytes Absolute Auto 1.7 X10*3/uL (1.2-4.9); Lymphocytes Percent Auto 25.5 % (20-40); Mean Corpuscular HGB Conc 32.3 g/dl (31.0-35.0); Mean Corpuscular Hemoglobin 25.1 pg (27.0-33.0); Mean Corpuscular Volume 77.8 fL (80.0-98.0); Mean Platelet Volume 11.2 fL (9.4-12.3); Monocytes Absolute Auto 0.6 X10*3/uL (0.1-1.2); Monocytes Percent Auto 9.3 % (2-11); Neutrophils Absolute Auto 4.1 x10*3/uL (2.0-8.3); Platelet Count 220 X10*3/uL (160-400); Red Blood Count 5.53 X10*6/uL (4.20-5.50); Red Cell Distribution Width 16.6 % (11.0-16.0); White Blood Count 6.6 X10*3/uL (4.8-10.8)
[2024-08-28 12:37] LABS: Alanine Aminotransferase 37 U/L (0-31); Albumin Level 4.4 g/dL (3.5-5.0); Alkaline Phosphatase 62 U/L (39-117); Anion Gap 13 (12-20); Aspartate Amino Transferase 29 U/L (5-31); Bilirubin Total 1.5 mg/dL (0.0-1.0); Blood Urea Nitrogen 14 mg/dL (9-16); Calcium 9.2 mg/dL (8.4-10.2); Carbon Dioxide 27 mmol/L (22-29); Chloride 106 mmol/L (96-108); Cholesterol 149 mg/dL (<200); Estimated Glomerular Filt Rate > 60; Glucose Random 101 mg/dL (60-115); HDL Cholesterol 42 mg/dL (>40); LDL Cholesterol Calculated 84 mg/dL (<100); Potassium 4.5 mmol/L (3.3-5.1); Sodium 141 mmol/L (135-145); Total Protein 8.1 g/dL (6.5-8.0); Triglycerides 118 mg/dL (<150)
== END 2024-08-28 11:18 | disposition home or self-care (01) ==
LOC: HO.LAB 11:17
PROVIDERS: PCP Internal Medicine; Visit Provider Internal Medicine
DX: E78.00 Pure hypercholesterolemia, unspecified (principal); F32.5 Major depressive disorder, single episode, in full remission; M54.50 Low back pain, unspecified; M77.11 Lateral epicondylitis, right elbow
CPT/HCPCS: 36415; 80053; 80061; 85025

== ENCOUNTER 2024-10-31 14:15 | Outpatient (AMB) | payer BC, SELFPAY ==
--- NOTE | 2024-10-31 14:35 | A.OFFVIS_ITS ---
Intake Visit Reasons: EMB Women Designer: Women Designer Present (Shirley) Accompanied by: Self / Same As Patient Allergies No Known Allergies Allergy (Verified 10/31/24 14:36) Is last menstrual period known: No Post menopausal: Yes Patient : No HPI Comments Details: Presenting for repeat EMB. Doing well with no complaints no vaginal bleeding pelvic pain or pressure or any other concerns. 01/30 Proliferative endometrium on EMB pathology 03/02 Mirena IUD inserted 06/02 Inactive endometrium Last pelvic ultrasound in 12/31 showed a 1.6 cm myoma PFSH Medical History Epidermal cyst Hyperlipidemia Surgical History Hx of dilation and curettage H/O breast augmentation Family History Father HTN (hypertension) Heart attack Mother Lung cancer Bone cancer Paternal Uncle Heart attack Maternal Grandfather Lung cancer Maternal Aunt Ovarian cancer Family/Other Brain cancer Lung cancer Social History Household Members Other:: brother Housing: House Alcohol intake: current Alcohol intake frequency: holidays/special occasions only Patient Tobacco Use Status: Never used Tobacco Patient : No Current occupational status: employed Current occupation: [employer] Sexual orientation: Straight/Heterosexual Gender identity: Female Female Reproductive History Menstrual Age of Menarche: 10 Review of Systems Const All systems reviewed & are unremarkable except as noted in HPI and below Reports as per HPI and Reports no additional complaints GI Reports no additional complaints Reports no additional complaints Office Procedures Endometrial Biopsy Details: The patient was counseled regarding the indication and benefits of endometrial sampling to rule out endometrial pathology including not limited to endometrial hyperplasia or endometrial cancer and others; The alternatives (Either do nothing vs. hysteroscopy D&C) & the risks were discussed with the patient including but not limited: pain, uterine perforation, bleeding, infection, possible injury to bladder, bowel, ureter, possible need for blood transfusion with all its possible risks. The patient verbalized understanding all questions answered and signed consent. The patient was placed into the dorsal lithotomy position; a speculum was inserted in the vagina. Using aseptic technique for the procedure, the cervix was cleansed with Betadine. The anterior lip of the cervix was grasped with a single tooth tenaculum. The uterus was sounded to 7 cm with a 4 mm Pipelle was used. Tissues samples were obtained and placed in formalin, in a patient labeled container and sent to the pathology department. At the end of the procedure, there was minimal bleeding noted The patient tolerated the procedure well and was discharged in good condition with the following instructions: Nothing in the vagina until the bleeding stops. No sex until the bleeding stops, to call if any of the following occurs: fever (>100.4), flu-like symptoms, abdominal pain, heavy bleeding, four smelling vaginal discharge. The patient was instructed to schedule a Follow up appointment in 2 weeks to discuss pathology results of the biopsy and treatment options. This note was generated with a voice recognition program. Some errors may have been overlooked during the review of this note. Sometimes these errors may affect the content or meaning of a given sentence. [id number] Biopsy Assessment & Plan Assessment & Plan (1) Abnormal uterine bleeding (AUB): Comment: 01/30 Proliferative endometrium on EMB pathology 03/02 Mirena IUD inserted 06/02 Inactive endometrium Code(s): N93.9 - Abnormal uterine and vaginal bleeding, unspecified Category: Medical Plan: EMB done, see procedure note (2) Uterine myoma: Code(s): D25.9 - Leiomyoma of uterus, unspecified Category: Medical Plan: Will order pelvic ultrasound. Instructions given the patient to schedule an ultrasound follow-up appointment within 2 weeks. All questions answered, the patient verbalized understanding Orders: Orders US pelvic and transvaginal Today D25.9 - Leiomyoma of uterus, unspecified AMB Endometrial Biopsy Today N93.9 - Abnormal uterine and vaginal bleeding, unspecified Coding Level of Care Code Est Pt Level 3 (85987) Procedure Only Diagnoses Abnormal uterine bleeding (AUB) N93.9 Uterine myoma D25.9 CPT Codes Endometrial Biopsy - CPT: 75399-Itprpaacbzr Biopsy ([id number])
--- OUTSIDE RECORDS SUMMARY | 2024-10-31 16:47 | XMS_ITS | Data Portability ---
Author Organization [facility], [address] Address [address] [place] [address] Assessment No assessment recorded. Plan of Treatment Reminders Order Date Submit Date Provider Last Modified By Organization Details Last Modified Time Details Appointments None recorded. Lab urinalysis, dipstick 2022 023 [email or web address] 5 [facility] [address], [address] [place], [address], 3 20:00:21 culture, urine 2022 023 [place] [facility], [address] [place] [address], [place], [address], 3 06:06:02 Referral None recorded. Procedures None recorded. Surgeries None recorded. Imaging None recorded. Medication Orders nitrofurant oin monohydrate /macrocryst als 100 mg capsule 2022 023 [email or web address] 5 [facility] #[id number], [address] [place], [address], 3 13:59:50 erythromyci n 5 mg/gram (0.5 %) eye ointment 2022 023 [facility] #[id number], [address] [place], [address], 3 20:00:21 Patient TargetsNo targets recorded. Patient Instructions Encounter Date Encounter Id Patient Instructions Last Modified By Organization Details Last Modified Time 06/02/2023 [id number] Urinary Tract Infection (UTI) in Women: Care Instructions [email or web address] Not available 06/02/2023 20:00:19 styes and chalazia: care instructions [email or web address] Not available 06/02/2023 20:00:19 Drink plenty of [...] eyelids, direct eye pain or visual disturbance. [email or web address] Not available 06/02/2023 20:03:04 Reason for Referral None Reported. Results Created Date Observation Date Name Description Value Unit Range Abnormal Flag Note LastModifiedBy Organization Detail LastModifiedTime 06/02/2006/04/2023 URINE CULTU RESYED urine culture, routine FINAL REPORT Not Available [facility] ([facility]) [address] [place], [address], 06/05/2023 06:06:02 06/02/2006/04/2023 URINE CULTU RESYED result 1 NO GROWTH Not Available [facility] ([facility]) [address] [place], [address], 06/05/2023 06:06:02 06/02/2006/02/2023 urina lysis , dipst ick Unknown Analyte Light Yellow Not Available [address] [place], [address], 06/02/2023 19:41:31 06/02/2006/02/2023 urina lysis , dipst ick Unknown Analyte Clear Not Available [address] [place], [address], 06/02/2023 19:41:31 06/02/20 23 06/02/2023 urina lysis , dipst ick Unknown Analyte Negati ve Not Available [address] [place], [address], 06/02/2023 19:41:31 06/02/20 23 06/02/2023 urina lysis , dipst ick Unknown Analyte Negati ve Not Available [address] [place], [address], 06/02/2023 19:41:31 06/02/2006/02/2023 urina lysis , dipst ick Unknown Analyte Negati ve Not Available [address] [place], [address], 06/02/2023 19:41:31 06/02/2006/02/2023 urina lysis , dipst ick Unknown Analyte <=1.00 5 Not Available [address] [place], [address], 06/02/2023 19:41:31 06/02/2006/02/2023 urina lysis , dipst ick Unknown Analyte Negati ve Not Available [address] [place], [address], 06/02/2023 19:41:31 06/02/20 23 06/02/2023 urina lysis , dipst ick Unknown Analyte 5.5 Not Available [facility] [address] [place], [address], 06/02/2023 19:41:31 06/02/20 23 06/02/2023 urina lysis , dipst ick Unknown Analyte Negati ve Not Available [address] [place], [address], 06/02/2023 19:41:31 06/02/2006/02/2023 urina lysis , dipst ick Unknown Analyte 0.2 E.U./d L Not Available [address] [place], [address], 06/02/2023 19:41:31 06/02/2006/02/2023 urina lysis , dipst ick Unknown Analyte Negati ve Not Available [address] [place], [address], 06/02/2023 19:41:31 06/02/2006/02/2023 urina lysis , dipst ick Unknown Analyte Negati ve Not Available [address] [place], [address], 06/02/2023 19:41:31 Result Notes None recorded. Problems [...] Last Updated DateTime 160.02 cm 27.1 kg/m2 73692.6 3 g 97.8 [degF] 18 /min 98 [...] SNOMED-CT Code Diagnosis ICD10 Code Diagnosis Note [id number] [place] [address] [facility] [address] [place] [address] 06/02/2023 19:19:54 06/02/2023 20:03:48 Acute urinary tract infection 777124198 N39.0 Hordeolum externum of upper eyelid of left eye 1849045558 55869 H00.014 Hordeolum externum of lower eyelid of left eye 7030909419 97728 H00.015 Health Concerns Section Related Observation LastModified by Organization Detai ls LastModified Time None Recorded Concern Status LastModified by Organization Details LastModified Time None Recorded Advance Directives Directive None Recorded Payers Encounter Date Sequence Insurance Name Policy Number Policy Hernandez Covered Member ID Hernandez Member ID Guarantor Name 06/02/2023 1 [place] 2 (POS) [id number] Joana Vegas [id number] Joana Vegas Notes Date Note Type Note [...] lower lids anita Alleviating factors:nothing helpsUrinary / Gum Puller Problems-FemaleReported bypatient.source of patient informationInformation obtained from [...] or contact lens use. Yadira Cantrell MD [facility] [place], [address], [place] - [facility] 06/03/2023 14:12:57 OBGyn Episode No OBEpisode recorded.
--- OUTSIDE RECORDS SUMMARY | 2024-10-31 16:47 | XMS_ITS | Clinical Summary ---
Author Organization [facility] Address [address] [place] [address] Care Team Providers Care Assistant Grocery Name Role Phone Unavailable Primary Care Provider Unavailabl e Social History Tobacco Use Types Packs/Day Years Used Date Smoking Tobacco: Never Assessed Comments Unknown Sex and Gender Information Value Date Recorded Sex Assigned at Not on file Legal Sex Female 12:20 PM EDT Gender Identity Not on file Sexual Orientation Not on file Plan of Treatment Health Maintenance Due Date Last Done Comments Hepatitis C Virus Screening 1970 HIV Screening 1981 DTaP/Tdap/Td Vaccines (1 - Tdap) 09/17/1987 Hepatitis B Vaccines (1 of 3 - 19+ 3-dose series) 09/07 Pneumococcal Vaccines 50+ (1 of 1 - PCV) 2018 Zoster (Shingles) Vaccine (1 of 2) 2018 COVID-19 Vaccine ( - 2023- season) 2024
== END 2024-10-31 14:48 | disposition home or self-care (01) ==
LOC: HO.HWS 14:15
PROVIDERS: PCP Internal Medicine; Visit Provider Obstetrics & Gynecology
DX: N93.9 Abnormal uterine and vaginal bleeding, unspecified (principal); D25.9 Leiomyoma of uterus, unspecified
CPT/HCPCS: 58100

== ENCOUNTER 2024-10-31 14:15 | Outpatient (REF) | payer BC, SELFPAY ==
--- OUTSIDE RECORDS SUMMARY | 2024-10-31 17:27 | XMS_ITS | Clinical Summary ---
Author Organization [facility] Address [address] [place] [address] Care Team Providers Care Coal Sample Tester Name Role Phone Unavailable Primary Care Provider [...]
== END 2024-10-31 14:16 | disposition home or self-care (01) ==
LOC: HO.LNP 14:15
PROVIDERS: PCP Internal Medicine; Visit Provider Obstetrics & Gynecology
DX: N93.9 Abnormal uterine and vaginal bleeding, unspecified (principal)
CPT/HCPCS: 58100; 88305

== ENCOUNTER 2024-11-27 13:44 | Outpatient (REF) | payer BC, SELFPAY ==
--- NOTE | ~2024-11-27 | US_ITS ---
EXAMINATION: US PELVIS TRANSABDOMINAL AND TRANSVAGINAL HISTORY: D25.9 - Leiomyoma of uterus, unspecified COMPARISON: Comparison is made with the prior examination dated 12/13/2023. TECHNIQUE: Transabdominal and endovaginal real-time 2D green-scale ultrasound was performed. FINDINGS: Uterus: The uterus is normal in size, measuring 8.0 x 3.9 x 7.0 cm. Myometrium has a normal echotexture. There are hypoechoic foci in the uterus measuring 11 x 8 x 11 mm and 9 x 7 x 8 mm. These appear to represent complex cysts rather than fibroids. No definite fibroids are identified. Endometrium: The endometrial stripe measures 8 mm in thickness. An IUD is seen in the appropriate position in the endometrial cavity. Right ovary: The right ovary is not identified. Left ovary: The left ovary measures 2.0 x 1.6 x 1.3 cm. The left ovary is normal in size and echotexture. Pelvic fluid: none. US/US pelvic and transvaginal IMPRESSION: 1. Hypoechoic foci in the uterus as described, which appear to represent complex cysts rather than fibroids. 2. Appropriately positioned IUD in the endometrial cavity. 3. The right ovary is not identified. Electronically signed by: Toni Del Rio MD 11/27/2024 02:40 PM EDT
--- OUTSIDE RECORDS SUMMARY | 2024-11-27 14:17 | XMS_ITS ---
Author Organization [facility] Address [address] [place] [address] Care Team Providers Care Seasonal Delivery Driver Name Role Phone Vivienne Bonilla Primary Care Provider UnavailToni Medina [phone] REASON FOR VISIT screening Problems Problem Type SNOMED Code ICD Code Onset Dates Problem Status W/U Status Risk Notes Problem Diverticulosis o f large intestine without perforation or abscess without bleeding (K57.30) Active confirmed Encounters Encounter Location Date Provider Diagnosis [facility] Outpatient [address] [place] [id number] 06/14/2024 Toni Baer Colon cancer scree gianfranco [...] * DEVANTE ORTIZOB:1970 ( 54 yo F)Acc No.[id number]:06/14/2024 COLON WITH MAC Patient:?HECTOR ORTIZ Provider:?Toni Baer MD :1970???Age:53 Y???Sex:Female D ate:06/14/2024 Address:[address] [place], [place] [id number] Pcp:Vivienne Bonilla Subjective: * Chief Complaints: * ???1. Screening. * Medical History:? Objective: * Vitals:? Assessment: * Assessment: 1.?Colon cancer screening - Z12.11 (Primary)???2.?Colon polyps - K63.5???3.?Diverticulosis of large intestine without perforation or abscess without bleeding - K57.30???4.?Other hemorrhoids - K64.8??? Plan: * Treatment: * Procedure Codes:?38680 COLON OSCOPY AND BIOPSY, Modifiers: PT * * The named appointment provid er may or may not be the originator of this progress note, and it is not deemed complete until electronically signed by the appointment provider. Sign off status: Pending * Provider:?Toni Baer MD Date:? 024 Generated for Tri aldridge/Alex/Shanikaitting on:?11/27/2024 02:17 PM EDT
--- OUTSIDE RECORDS SUMMARY | 2024-11-27 14:17 | XMS_ITS | Clinical Summary ---
Author Organization [facility] Address [address] [place] [address] Care Team Providers Care Law Enforcement Director Name Role Phone Unavailable Primary Care Provider [...]
--- OUTSIDE RECORDS SUMMARY | 2024-11-27 14:17 | XMS_ITS | Patient Health Record ---
Author Organization [facility] Address [address] [place] [address] Care Team Providers Care Rail Express Clerk Name Role Phone DionnefilomenaVivienne Primary Care Provider UnavailToni Medina [phone] Allergies No Known Allergies Results Component Value Reference Range Notes Immunoglobulin A Reviewed date:06/13/2024 06:31:14 PM Interpretation: Performing Lab:[facility], [address] [place] [address] Notes/Report: Immunoglobulin A 346 47-310 mg/dL THIS TEST WAS PERFORMED AT: [facility] [address] [place] [address] LIDIA HOWARD MD Transglutaminase Ab IgG Reviewed date:03/15/2024 06:26:46 PM Interpretation: Performing Lab:[facility], [address] [place] [address] Notes/Report: Transglutaminase Ab IgG <1.0 Value Interpretation ----- <15.0 Antibody not detected > or = 15.0 Antibody detected THIS TEST WAS PERFORMED AT: [facility] [address] [place] [phone] LIDIA HOWARD MD Transglutaminase IgA Reviewed date:03/15/2024 06:27:01 PM Interpretation: Performing Lab:[facility], [address] [place] [address] Notes/Report: Transglutaminase IgA <1.0 Value Interpretation ----- <15.0 Antibody not detected > or = 15.0 Antibody detected THIS TEST WAS PERFORMED AT: [facility] [address] [place] [address] LIDIA HOWARD MD Gliadin Ab Panel Reviewed date:03/15/2024 06:27:09 PM Interpretation: Performing Lab:[facility], [address] [place] [address] Notes/Report: Gliadin Deamidated IgA Ab 4.2 Value Interpretation ----- <15.0 Antibody not detected > or = 15.0 Antibody detected Gliadin Deamidated IgG Ab 2.9 Value Interpretation ----- <15.0 Antibody not detected > or = 15.0 Antibody detected THIS TEST WAS PERFORMED AT: [facility] [address] [place] [phone] LIDIA HOWARD MD Endomysial IgA rflx Titer Reviewed date:03/15/2024 06:27:17 PM Interpretation: Performing Lab:[facility], [address] [place] [address] Notes/Report: Endomysial IgA Antibody Negative Negative THIS TEST WAS PERFORMED AT: [facility] [address] MAHAD GRIGGS MD,PHD Endomysial Titer TNP Pathology (Not yet reviewed by provider) Interpretation: Performing Lab:[facility], [address] [place] [address] Notes/Report: --- Name: Hector Vegas Yuly Age/Sex: 53/F : 1970 Unit#: [id number] Attend Dr: Toni Baer MD Re06/14/24 Status : [facility] Location: [facility] Disch: --- SPEC : [id number] RECD : 06/14/24 STATUS: PENELOPE PAUL NUM: [id number] JERICA: 06/14/24 [facility] DR: Toni Baer MD ENTERED: 06/14/24 SP TYPE: Surgical OTHR DR: Vivienne Bonilla MD ORDERED: HE Stain/9, Gross Micro L4/3 Diagnosis A. Colon, ascending, biopsy: Colonic mucosa with no specific change; no evidence of microscopic colitis. B. Colon, descending , biopsy: Colonic mucosa with lymphoid aggregates and no specific change; no evidence of microscopic colitis. C. Colon, at 15 cm, polyp: Hyperplastic polyp. Clinical History Pre-Op Dx: Screening Post-Op Dx: Colon polyp, diverticulosis and hemorrhoids Microscopic Description Microscopic sections reviewed. Material Received A. Ascending colon b x, r/o microscopic colitis B. Descending colon bx, r/o microscopic colitis C. Colon polyp at 15 cm Gross Description Received in three parts. Part A: Received in formalin labeled ?ascending colon bx, rule out micro colitis are 5 taylor irregular and rectangular tissue fragments ranging from 0.1-0.3 cm, submitted in toto in a cassette labeled A. Part B: Received in formalin labeled ?descending colon bx, rule out micro colitis? are 4 taylor irregular and rectangular tissue fragments ranging from 0.25-0.45 cm, submitted in toto in a cassette labele d B. Part C: Received in formalin labeled ?colon polyp at 15? is a 0.25 cm taylor-pink irregular tissue fragment, submitted in toto in a cassette labeled C. CEDS CONTINUED ON NEXT PAGE --- Name: Hector Vegas Age/Sex: 53/F : 1970 Unit#: [id number] Attend Dr: Toni Baer MD Re06/14/24 Status : [facility] Location: [facility] Disch: --- SPEC : [id number] RECD : 06/14/24 STATUS: PENELOPE PAUL NUM: [id number] JERICA: 06/14/24 [facility] DR: Toni Baer MD ENTERED: 06/14/24- 55 SP TYPE: Surgical OTHR DR: Vivienne Bonilla MD ORDERED: FREDDIE Stain/9, Gross Micro L4/3 Copies To: Vivienne Bonilla MD [facility] [address] [address] [place] [address] Toni Baer MD [facility] [address] [place] [address] --- Signed (signature on file) Jackie Oneal 06/17/24 1108 --- END OF REPORT Reason For Referral No Information Medications Medication SIG (Take, Route, Frequency, Duration) Notes Start Date End Date Status Sertraline HCl 50 MG Oral for 90 Active Atorvastatin Calcium 40 MG TAKE 1 TABLET BY MOUTH EVERY DAY Oral for 90 Active Social History Tobacco Use: Social History Observation Description Date Details (start date - stop date) Never Smoker NA - NA Tobacco Use/Smoking Question Answer Notes Patient is [...] Never (0 point) Points 1 Interpretation Negative Section Notes: Nonsmoker, occasional glass of wine Problems Problem Type SNOMED Code ICD Code Onset Dates Problem Status W/U Status Risk Notes Problem Colon cancer screening ([id number]) Colon cancer screening (Z12.11) Active confirmed Problem Diverticulosis o f large intestine without perforation or abscess without bleeding (K57.30) Active confirmed Problem Chronic diarrhea (096296974) Chronic diarrhea (K52.9) Active confirmed Vital Signs Blood pressure diastolic 00 mm Hg 02/27/2024 Height 5 ft 3 in in 02/27/2024 Blood pressure systolic 00 mm Hg 02/27/2024 Weight 169 lbs 02/27/2024 BMI 29.93 kg/m2 02/27/2024 Encounters Encounter Location Date Provider Diagnosis [facility] [address] [place] [id number] 06/14/2024 Toni Baer Colon cancer screeni ng Z12.11 ; Colon polyps K63.5 ; Diverticulosis of large intestine without perforation or abscess without bleeding K57.30 and Other hemorrhoids K64.8 [facility] [address] [place] [phone] 02/27/2024 Toni Baer Colon cancer screeni ng Z12.11 and Chronic diarrhea K52.9 Assessments Encounter Date Diagnosis (ICD Code) Assessment Notes Treatment Notes Treatment Clinical Notes Section Notes 06/14/2024 Colon cancer screening (ICD-10 - Z12.11) 06/14/2024 Colon polyps (ICD-10 - K63.5) 02/27/2024 Colon cancer screening (ICD-10 - Z12.11) Overall, Hector appears quite well. We did review her symptoms and the irregular bowel movements with associated abdominal cramps and loose stool are most consistent with probable irritable bowel syndrome given her excellent clinical appearance and longevity of her symptoms. I doubt she has anything such as inflammatory bowel disease. We would want to exclude things such as celiac disease or microscopic colitis. I have recommended a colonoscopy both for screening purposes and to rule out any underlying type of colitis. We did review the rationale for this in regard to colon cancer prevention and/or early detection. Full consent was obtained for this, including risks of bleeding and perforation. The procedure will be done with monitored anesthesia care. I shall also check laboratories for celiac disease. I did recommend using some Imodium either p.r.n. or once or twice a day on a regular basis to try to keep her symptoms in check in the meantime. Hector was comfortable with this plan. Thank you again for allowing me to participate in Hector's care. I shall continue to keep you advised of her progress. 02/27/2024 Chronic diarrhea (ICD-10 - K52.9) Try using some Imodium as needed, or even every morning and afternoon to help prevent the diarrhea Overall, Hector appears quite well. We did review her symptoms and the irregular bowel movements with associated abdominal cramps and loose stool are most consistent with probable irritable bowel syndrome given her excellent clinical appearance and longevity of her symptoms. I doubt she has anything such as inflammatory bowel disease. We would want to exclude things such as celiac disease or microscopic colitis. I have recommended a colonoscopy both for screening purposes and to rule out any underlying type of colitis. We did review the rationale for this in regard to colon cancer prevention and/or early detection. Full consent was obtained for this, including risks of bleeding and perforation. The procedure will be done with monitored anesthesia care. I shall also check laboratories for celiac disease. I did recommend using some Imodium either p.r.n. or once or twice a day on a regular basis to try to keep her symptoms in check in the meantime. Hector was comfortable with this plan. Thank you again for allowing me to participate in Hector's care. I shall continue to keep you advised of her progress. 06/14/2024 Diverticulosis of large intestine without perforation or abscess without bleeding (ICD-10 - K57.30) 06/14/2024 Other hemorrhoids (ICD-10 - K64.8) Plan Of Treatment Pending Test Test Name Order Date CELIAC PANEL #10 02/27/2024 Pathology 06/14/2024 Future Test Test Name Order Date COLONOSCOPY 02/27/2024 Insurance Providers Payer Name Payer Address Payer Phone Subscriber Number Group Number Insured Name Patient Relationship to Insured Coverage Start Date Coverage End Date [facility] [address] [place] [address] [id number] HECTOR VEGAS Self - patient is the insured Medical (General) History Medical History History ICD Code Denies SD,DM,CVA,Lung disease,renal dise ase Hyperlipidemia Depression Surgical History Surgery Date(Month/Year) D&C 2023
--- OUTSIDE RECORDS SUMMARY | 2024-11-27 14:17 | XMS_ITS ---
Author Organization [facility] Address [address] [place] [address] Care Team Providers Care Waste Disposal Leakage Tester Name Role Phone Vivienne Bonilla Primary Care Provider Toni Dillon Unavailable [phone] Allergies No Known Allergies REASON FOR VISIT Patient presents today for a COLON SCREENING Medications Medication SIG (Take, Route, Frequency, Duration) [...] Status Risk Notes Problem Colon cancer screening (005363358) Colon cancer screening (Z12.11) Active confirmed Problem Chronic diarrhea (572953819) Chronic diarrhea (K52.9) Active confirmed Vital Signs Blood pressure systolic 00 mm Hg 02/27/20 24 Blood pressure diastolic 00 mm Hg 024 Height 5 ft 3 in in 02/27/2024 Weight 169 lbs 02/27/2024 BMI 29.93 kg/m2 02/27/2024 Encounters Encounter Location Date Provider Diagnosis [facility] [address] [place] [address] 02/27/2024 Toni Baer Colon cancer screening Z12.11 and Chronic diarrhea K52.9 Assessments Encounter Date Diagnosis (ICD Code) Assessment Notes Treatment Notes Treatment Clinical Notes Section Notes 02/27/2024 Colon cancer screening (ICD-10 - [...] to keep you advised of her progress. Plan Of Treatment Treatment Notes Assessment Notes Chronic diarrhea Try using some Imodi um as needed, or even every morning and afternoon to help prevent the diarrhea Pending Test Test Name Order Date CELIAC PANEL #10 02/27/2024 Future Test Test Name Order Date COLONOSCOPY 02/27/2024 Next Appt Details Follow Up: prn, Reason: Progress Notes * DEVANTE ORTIZOB:1970 ( 53 yo F)Acc No.[id number]:02/27/2024 Progress Notes Patient:?HECTOR ROTIZ Provider:?Toni Baer MD :1970???Age:53 Y???Sex:Female D ate:02/27/2024 Address:[address] [place] [address] Pcp:Vivienne Bonilla Subjective: * Chief Complaints: * ???Patient presents today fo r a COLON SCREENING * HPI: ???incontinence:? I saw Hector in consultation today in regard to further evaluation of her irregular bowel movements with associated diarrhea, and need for colorectal cancer screening. ?As you know, Hector is a healthy 53-year-old female who generally feels well. She does describe at least one or 2 years of some change in her bowel habits with some intermittent episodes of diarrhea with associated lower abdominal cramps. She describes almost daily episodes of some loose bowel movements with gas. This can occur upwards of 3 or 4 times a day. She has never noticed any sign of bleeding, significant abdominal pain, nausea, or vomiting. She denies any associated fevers, jaundice, weight loss, anorexia, significant heartburn, nor dysphagia. She does describe some increased symptoms after meals and/or with stress. ?She does not use much in the way of any dairy products and has about 2 cups of coffee per day. She denies any known family history of colorectal cancer, inflammatory bowel disease, or celiac disease. Hector has never had a colonoscopy. ?Laboratories earlier this year revealed a normal CBC, chemistries, renal function, LFTs, and TSH. * ROS:?General/Constitutional:?Change in appetite?denies.?Chills?denies.?Fatigue?denies.?Ophthalmologic:?Comments?all negative.?ENT:?Comments?all negative.?Respiratory:?hemoptysis?denies.?Cough?denies.?Cardiovascular:?Chest pain?denies.?Orthopnea?denies.?Gastrointestinal:?Comments?See HPI for details.?Genitourinary:?Hematuria?denies.?Dysuria?denies.?Musculoskeletal:?Painful joints?denies.?Weakness?denies.?Skin:?Itching?denies.?Rash?denies.?Neurologic:?Headache?denies.?Seizures?denies.?Psychiatric:?Comments?all negative.? * Medical History:? * Surgical History:?D&C 2023 * Hospitalization/Major Diagno stic Procedure:?No Hospitalization History. * Family History:?Father: dece ased, heart attack, diagnosed with Heart disease, HTN (hypertension).?Mother: , diagnosed with HTN (hypertension).?Maternal Grand Father: heart attack, diagnosed with Heart disease.? * Social History:?Tobacco Use:?Tobacco Use/Smoking?Patient is a?nonsmoker.?Drugs/Alcohol:?Alcohol Screen?Did you have a drink containing alcohol in the past year??Yes,?How often did you have a drink containing alcohol in the past year??Monthly or less (1 point), How many drinks did you have on a typical day when you were drinking in the past year??1 or 2 drinks (0 point),?How often did you have 6 or more drinks on one occasion in the past year??Never (0 point),?Points?1,?Interpretation?Negative.?Miscellaneous:?Marital status: seperated. Occupation: [employer]. ???Nonsmoker, occasional glass of wine. * Medications:?TakingSertralin e HCl 50 MG Tablet Oral Atorvastatin Calcium 40 MG Tablet TAKE 1 TABLET BY MOUTH EVERY DAY Oral Medication List reviewed and reconciled with the patientTaking Sertraline HCl 50 MG Tablet Oral Taking Atorvastatin Calcium 40 MG Tablet TAKE 1 TABLET BY MOUTH EVERY DAY Oral Medication List reviewed and reconciled with the patient * Allergies:?N.K.D.A.yes[Aller gies Verified] Objective: * Vitals:?Wt: 169 lbs, Ht: 5 f t 3 in, BMI:29.93 Index, BP: 00/00 mm Hg. * Examination: ???General Examination: ?GENERAL APPEARANCE:?pleasant, well nourished, well developed, in no acute distress.?EYES:?sclera non-icteric.?ORAL CAVITY:?mucosa moist.?NECK/THYROID:?no cervical lymphadenopathy, neck supple.?SKIN:?nonjaundiced, no spider angiomata.?HEART:?S1, S2 normal.?LUNGS:?clear to auscultation bilaterally.?ABDOMEN:?normal bowel sounds, no guarding or rigidity, no guarding or rigidity, no masses palpable, soft, nontender, nondistended.?EXTREMITIES:?no edema.?NEUROLOGIC:?alert and oriented.? Assessment: * Assessment: 1.?Chronic diarrhea - K52.9 (Primary)?2.?Colon cancer screening - Z12.11? Overall, Hector appears quite well. We did [...] to keep you advised of her progress. Plan: * Treatment: 2.?Colon cancer screening?Procedure: COLONOSCOPY (Ordered for 02/27/2024) * Procedure Codes:?3017F COLOR ECTAL CA SCREEN DOC BEX4301K TOBACCO [id number] BP SCR NOT PRFRM REC REASON NOS * Preventive Medicine:? ??Counseling:?Care goal follow-up plan:?Above Normal BMI Follow-up?Giving encouragement to exercise,?BMI management provided?Yes.? * Follow Up:?prn * * Sign off status: Completed true * Provider:?Toni Baer MD Date:? 024 Generated for Tri aldridge/Alex/eTransmitting on:?11/27/2024 02:17 PM EDT History and Physical Notes * HPI (History of Present Illness) Category Sub-Category Detail Notes Category Not es incontinence I saw Hector in consultation today in regard to further evaluation of her irregular bowel movements with associated diarrhea, and need for colorectal cancer screening. As you know, Hector is a healthy 53-year-old female who generally feels well. She does describe at least one or 2 years of some change in her bowel habits with some intermittent episodes of diarrhea with associated lower abdominal cramps. She describes almost daily episodes of some loose bowel movements with gas. This can occur upwards of 3 or 4 times a day. She has never noticed any sign of bleeding, significant abdominal pain, nausea, or vomiting. She denies any associated fevers, jaundice, weight loss, anorexia, significant heartburn, nor dysphagia. She does describe some increased symptoms after meals and/or with stress. She does not use much in the way of any dairy products and has about 2 cups of coffee per day. She denies any known family history of colorectal cancer, inflammatory bowel disease, or celiac disease. Hector has never had a colonoscopy. Laboratories earlier this year revealed a normal CBC, chemistries, renal function, LFTs, and TSH. Examination Category Sub-Category Detail Notes Category Not es General Examination GENERAL APPEARANCE: pleasant , well [...]
--- OUTSIDE RECORDS SUMMARY | 2024-11-27 14:17 | XMS_ITS | Data Portability ---
Author Organization [facility] [address] Address [address] [place] [address] Assessment No assessment recorded. Plan of Treatment Reminders Order Date Submit Date Provider Last Modified By Organization Details Last Modified Time Details Appointments None recorded. Lab urinalysis, dipstick 2022 023 [email or web address] 5 [facility] [address], [address] [place], [address], 3 20:00:21 culture, urine 2022 023 [facility], [address] [place] [address], [place], [address], 3 06:06:02 Referral None recorded. Procedures None recorded. Surgeries None recorded. Imaging None recorded. Medication Orders nitrofurant oin monohydrate /macrocryst als 100 mg capsule 2022 023 [email or web address] 5 [facility] #[id number], [address] [place], [address], 3 13:59:50 erythromyci n 5 mg/gram (0.5 %) eye ointment 2022 023 [facility] #[id number], [address] [place], [address], 3 20:00:21 Patient TargetsNo targets recorded. Patient Instructions Encounter Date Encounter Id Patient Instructions Last Modified By Organization Details Last Modified Time 06/02/2023 [id number] Urinary Tract Infection (UTI) in Women: Care Instructions [email or web address] Not available 06/02/2023 20:00:19 styes and chalazia: care instructions [email or web address] Not available 06/02/2023 20:00:19 Drink plenty of [...] eyelids, direct eye pain or visual disturbance. Not available 06/02/2023 20:03:04 Reason for Referral None Reported. Results Created Date Observation Date Name Description Value Unit Range Abnormal Flag Note LastModifiedBy Organization Detail LastModifiedTime 06/02/2006/04/2023 URINE CULTU RESYED urine culture, routine FINAL REPORT Not Available [facility] ([facility]) [address] [place], [address], 06/05/2023 06:06:02 06/02/2006/04/2023 URINE CULTU RESYED result 1 NO GROWTH Not Available [facility] ([facility]) [address] [place], [address], 06/05/2023 06:06:02 06/02/2006/02/2023 urina lysis , dipst ick Unknown Analyte Light Yellow Not Available [address] [place], [address], 06/02/2023 19:41:31 06/02/2006/02/2023 urina lysis , dipst ick Unknown Analyte Clear Not Available [address] [place], [address], 06/02/2023 19:41:31 06/02/20 23 06/02/2023 urina lysis , dipst ick Unknown Analyte Negati ve Not Available [address] [place], [address], 06/02/2023 19:41:31 06/02/20 23 06/02/2023 urina lysis , dipst ick Unknown Analyte Negati ve Not Available [address] [place], [address], 06/02/2023 19:41:31 06/02/2006/02/2023 urina lysis , dipst ick Unknown Analyte Negati ve Not Available [address] [place], [address], 06/02/2023 19:41:31 06/02/2006/02/2023 urina lysis , dipst ick Unknown Analyte <=1.00 5 Not Available [address] [place], [address], 06/02/2023 19:41:31 06/02/2006/02/2023 urina lysis , dipst ick Unknown Analyte Negati ve Not Available [address] [place], [address], 06/02/2023 19:41:31 06/02/20 23 06/02/2023 urina lysis , dipst ick Unknown Analyte 5.5 Not Available [facility] [address] [place], [address], 06/02/2023 19:41:31 06/02/20 23 06/02/2023 urina lysis , dipst ick Unknown Analyte Negati ve Not Available [address] [place], [address], 06/02/2023 19:41:31 06/02/2006/02/2023 urina lysis , dipst ick Unknown Analyte 0.2 E.U./d L Not Available [address] [place], [address], 06/02/2023 19:41:31 06/02/2006/02/2023 urina lysis , dipst ick Unknown Analyte Negati ve Not Available [address] [place], [address], 06/02/2023 19:41:31 06/02/2006/02/2023 urina lysis , dipst ick Unknown Analyte Negati ve Not Available [address] [place], [address], 06/02/2023 19:41:31 Result Notes None recorded. Problems [...] Last Updated DateTime 160.02 cm 27.1 kg/m2 18874.6 3 g 97.8 [degF] 18 /min 98 % 98 % 71 /min 165 mm[Hg] 93 mm[Hg] Danielle Padmaja PA - [facility] 19:42:45 Social History Question Answer Notes LastModified by Organizat ion Details LastModified Time Tobacco Smoking Status Never Smoker [facility] - [facility] 06/02/2023 19:40:45 Have You Had A Flu Shot This Season? No Information not available 06/02/2023 Have You Had Direct Contact, Or Contact During Intimacy, With Monkeypox Rash, Scabs, Or Body Fluids From A Person With Monkeypox? No Information not available 06/02/2023 What Was The Date Of Your Most Recent Tobacco Screening? 06/02/2023 Information not available 06/02/2023 Have You Recently Traveled Abroad? No Information not available 06/02/2023 Sex: Unknown Functional Status Question Answer Note LastModified by Organizat ion Details LastModified Time Do you use any illicit or recreational drugs? No Information not available 06/02/2023 Do you or have you ever used any other forms of tobacco or nicotine? No Information not available 06/02/2023 What is your level of alcohol consumption? Occasional Information not available 06/02/2023 Mental Status None recorded. Family History Nothing Reported. Medical History No medical history recorded. Gynecological History Statement/Question Response LMP Unknown Obstetrics History GPAL:G 0 P 0 0 0 0 Past Encounters Encounter ID Performer Location Encounter Start Date Encounter Closed Date Diagnosis/Indication Diagnosis SNOMED-CT Code Diagnosis ICD10 Code Diagnosis Note [id number] [place] [address] [facility] [address] [place] [address] 06/02/2023 19:19:54 06/02/2023 20:03:48 Acute urinary tract infection 185311397 N39.0 Hordeolum externum of upper eyelid of left eye 6421964016 34818 H00.014 Hordeolum externum of lower eyelid of left eye 8017666045 18084 H00.015 Health Concerns Section Related Observation LastModified by Organization Detai ls LastModified Time None Recorded Concern Status LastModified by Organization Details LastModified Time None Recorded Advance Directives Directive None Recorded Payers Insurance Date Sequence Insurance Name Policy Number Policy Hernandez Covered Member ID Hernandez Member ID Guarantor Name 06/09/2023 1 [place] 2 (POS) [id number] Joana Vegas [id number] Joana Vegas Notes Date Note Type [...] lower lids anita Alleviating factors:nothing helpsUrinary / Business Services Coordinator Problems-FemaleReported bypatient.source of patient informationInformation obtained from [...] or contact lens use. Yadira Cantrell MD [address] [place] [address] [facility] [place], [address], [place] - [facility] 06/03/2023 14:12:57 OBGyn Episode No OBEpisode recorded.
== END 2024-11-27 13:45 | disposition home or self-care (01) ==
LOC: HO.US 13:44
PROVIDERS: PCP Internal Medicine; Visit Provider Obstetrics & Gynecology
DX: D25.9 Leiomyoma of uterus, unspecified (principal)
CPT/HCPCS: 76830; 76856

== ENCOUNTER → 2024-11-27 13:47 | Outpatient (BNV) | payer BC, SELFPAY | PROVIDERS: PCP Internal Medicine; Visit Provider Radiology Diagnostic Radiology | DX: D25.9 Leiomyoma of uterus, unspecified (principal); Z97.5 Presence of (intrauterine) contraceptive device | CPT/HCPCS: 76830; 76856 ==

== ENCOUNTER 2025-01-15 08:34 | Outpatient (AMB) | payer BC, SELFPAY ==
--- NOTE | 2025-01-15 08:35 | MHC.OFFVIS ---
Intake Visit Reasons: emb results/u/s follow up Accompanied by: Self / Same As Patient Allergies No Known Allergies Allergy (Verified 01/15/25 08:36) HPI Comments Details: Presenting for pelvic ultrasound and EMB follow-up. Doing well with complaining of on and off spotting/ vaginal bleeding 01/30 Proliferative endometrium on EMB pathology 03/02 Mirena IUD inserted 06/02 Inactive endometrium 11/01 pathology showed the following: Superficial fragments of inactive endometrium with pseudodecidual change, consistent with exogenous progestin; no atypia or hyperplasia identified 12/01 pelvic ultrasound showed the following: Uterus: The uterus is normal in size, measuring 8.0 x 3.9 x 7.0 cm. Myometrium has a normal echotexture. There are hypoechoic foci in the uterus measuring 11 x 8 x 11 mm and 9 x 7 x 8 mm. These appear to represent complex cysts rather than fibroids. No definite fibroids are identified. Endometrium: The endometrial stripe measures 8 mm in thickness. An IUD is seen in the appropriate position in the endometrial cavity. Right ovary: The right ovary is not identified. Left ovary: The left ovary measures 2.0 x 1.6 x 1.3 cm. The left ovary is normal in size and echotexture. Pelvic fluid: none. PFSH Medical History Epidermal cyst Hyperlipidemia Surgical History Hx of dilation and curettage H/O breast augmentation Family History Father HTN (hypertension) Heart attack Mother Lung cancer Bone cancer Paternal Uncle Heart attack Maternal Grandfather Lung cancer Maternal Aunt Ovarian cancer Family/Other Brain cancer Lung cancer Social History Household Members Other:: brother Housing: House Alcohol intake: current Alcohol intake frequency: holidays/special occasions only Patient Tobacco Use Status: Never used Tobacco Current occupational status: employed Current occupation: [employer] Sexual orientation: Straight/Heterosexual Gender identity: Female Female Reproductive History Menstrual Age of Menarche: 10 Review of Systems Const All systems reviewed & are unremarkable except as noted in HPI and below Reports as per HPI and Reports no additional complaints GI Reports no additional complaints Reports no additional complaints Office Procedures Endometrial Biopsy Details: The patient was counseled regarding the indication and benefits of endometrial sampling to rule out endometrial pathology including not limited to endometrial hyperplasia or endometrial cancer and others; The alternatives (Either do nothing vs. hysteroscopy D&C) & the risks were discussed with the patient including but not limited: pain, uterine perforation, bleeding, infection, possible injury to bladder, bowel, ureter, possible need for blood transfusion with all its possible risks. The patient verbalized understanding all questions answered and signed consent. The patient was placed into the dorsal lithotomy position; a speculum was inserted in the vagina. Using aseptic technique for the procedure, the cervix was cleansed with Betadine. The anterior lip of the cervix was grasped with a single tooth tenaculum. The uterus was sounded to 7 cm with a 4 mm Pipelle was used. Tissues samples were obtained and placed in formalin, in a patient labeled container and sent to the pathology department. At the end of the procedure, there was minimal bleeding noted The patient tolerated the procedure well and was discharged in good condition with the following instructions: Nothing in the vagina until the bleeding stops. No sex until the bleeding stops, to call if any of the following occurs: fever (>100.4), flu-like symptoms, abdominal pain, heavy bleeding, four smelling vaginal discharge. The patient was instructed to schedule a Follow up appointment in 2 weeks to discuss pathology results of the biopsy and treatment options. This note was generated with a voice recognition program. Some errors may have been overlooked during the review of this note. Sometimes these errors may affect the content or meaning of a given sentence. [id number] Biopsy Assessment & Plan Assessment & Plan (1) Postmenopausal bleeding: Comment: Recurrent Proliferative endometrium in 01/30 status post Mirena IUD, inactive endometrium since 06/02 Code(s): N95.0 - Postmenopausal bleeding Category: Medical Plan: Discussed with the patient the followin/24 Proliferative endometrium on EMB pathology 03/02 Mirena IUD inserted 06/02 Inactive endometrium 11/01 inactive endometrium Recommended EMB to rule out endometrial pathology given the patient has recurrent postmenopausal bleeding, EMB done, see procedure note Discussed with the patient the options of treatment including hysterectomy given her recurrent postmenopausal bleeding will check the EMB and treat accordingly (2) Uterine myoma: Code(s): D25.9 - Leiomyoma of uterus, unspecified Category: Medical Plan: Discussed with the patient the findings on pelvic ultrasound complex myometrial cyst not myomas according to recent ultrasound & the risk of myosarcoma; in addition reviewed with the patient that malignancy and pre malignancy cannot be ruled out without hysterectomy for pathological evaluation ; furthermore, explained to the patient the limitation of pelvic ultrasound and endometrial biopsy in the setting. Discussed with the patient the options of treatment including expectant management versus hysterectomy; the pros and cons, risks benefits of each approach were discussed with the patient including the fact that in cases of myosarcoma, surgical treatment can lead to early diagnosis and positively affects the prognosis; after further discussion, the patient decided to think about it and get back to us next visit. All questions answered, the patient verbalized understanding Orders: Orders AMB Endometrial Biopsy Today N95.0 - Postmenopausal bleeding Coding Level of Care Code Est Pt Level 3 (47063) Procedure Only Diagnoses Postmenopausal bleeding N95.0 Uterine myoma D25.9 CPT Codes Endometrial Biopsy - CPT: 06264-Uqenmwlaccm Biopsy ([id number])
--- OUTSIDE RECORDS SUMMARY | 2025-01-15 08:48 | XMS_ITS | Clinical Summary ---
Author Organization [facility] Address [address] [place] [address] Care Team Providers Care Heat Curer Name Role Phone Unavailable Primary Care Provider [...]
--- OUTSIDE RECORDS SUMMARY | 2025-01-15 08:48 | XMS_ITS | Data Portability ---
Author Organization [facility], [address] Address [address] [place] [address] Assessment No assessment recorded. Plan of Treatment Reminders Order Date Submit Date Provider Last Modified By Organization Details Last Modified Time Details Appointments None recorded. Lab urinalysis, dipstick 2022 023 [email or web address] 5 [facility] [address], [address] [place], [address], 3 20:00:21 culture, urine 2022 023 [email or web address] [facility], [address] [place] [address], [place], [address], 3 06:06:02 Referral None recorded. Procedures None recorded. Surgeries None recorded. Imaging None recorded. Medication Orders nitrofurant oin monohydrate /macrocryst als 100 mg capsule 2022 023 [email or web address] 5 [facility]/Pharmacy #[id number], [address] [place], [address], 3 13:59:50 erythromyci n 5 mg/gram (0.5 %) eye ointment 2022 023 [facility]/Pharmacy #[id number], [address] [place], [address], 3 20:00:21 Patient TargetsNo targets recorded. Patient Instructions Encounter Date Encounter Id Patient Instructions Last Modified By Organization Details Last Modified Time 06/02/2023 [id number] Urinary Tract Infection (UTI) in Women: Care Instructions [email or web address] Not available 06/02/2023 20:00:19 styes and chalazia: care instructions [email or web address] Not available 06/02/2023 20:00:19 Drink plenty of [...] culture, routine FINAL REPORT Not Available [facility] ([facility]) [address] [place], [address], 06/05/2023 06:06:02 06/02/2006/04/2023 URINE CULTU RESYED result 1 NO GROWTH Not Available [facility] ([facility]) [address] [place], [address], 06/05/2023 06:06:02 06/02/2006/02/2023 urina lysis , dipst ick Unknown Analyte Light Yellow Not Available _ [address] [place], [address], 06/02/2023 19:41:31 06/02/2006/02/2023 urina lysis , dipst ick Unknown Analyte Clear Not Available _ [address] [place], [address], 06/02/2023 19:41:31 06/02/20 23 06/02/2023 urina lysis , dipst ick Unknown Analyte Negati ve Not Available [address] [place], [address], 06/02/2023 19:41:31 06/02/2006/02/2023 urina lysis , dipst ick Unknown Analyte Negati ve Not Available [address]lin [address] [place], [address], 06/02/2023 19:41:31 06/02/2006/02/2023 urina lysis , dipst ick Unknown Analyte Negati ve Not Available [address] [place], [address], 06/02/2023 19:41:31 06/02/20 23 06/02/2023 urina lysis , dipst ick Unknown Analyte <=1.00 5 Not Available [address] [place], [address], 06/02/2023 19:41:31 06/02/2006/02/2023 urina lysis , dipst ick Unknown Analyte Negati ve Not Available [address] [place], [address], 06/02/2023 19:41:31 06/02/20 23 06/02/2023 urina lysis , dipst ick Unknown Analyte 5.5 Not Available [facility] [address] [place], [address], 06/02/2023 19:41:31 06/02/20 23 06/02/2023 urina lysis , dipst ick Unknown Analyte Negati ve Not Available [address] [place], [address], 06/02/2023 19:41:31 06/02/2006/02/2023 urina lysis , dipst ick Unknown Analyte 0.2 E.U./d L Not Available [address] [place], [address], 06/02/2023 19:41:31 06/02/2006/02/2023 urina lysis , dipst ick Unknown Analyte Negati ve Not Available [address] [place], [address], 06/02/2023 19:41:31 06/02/2006/02/2023 urina lysis , dipst ick Unknown Analyte Negati ve Not Available sprin [address] [place], [address], 06/02/2023 19:41:31 Result Notes None recorded. Problems [...] blood by Pulse oximetry Heart rate Systolic And Diastolic Provider Name and Address Organization Details Last Updated DateTime 3 160.02 cm 27.1 kg/m2 33444.6 3 g 97.8 [degF] 18 /min 98 % 98 % 71 /min 165/93 mm[Hg] Danielle Padmaja PA - [facility] [...] SNOMED-CT Code Diagnosis ICD10 Code Diagnosis Note [id number] [place] [address] [facility] [address] [place] [address] 06/02/2023 19:19:54 06/02/2023 20:03:48 Acute urinary tract infection 723887203 N39.0 Hordeolum externum of upper eyelid of left eye 7362938048 21193 H00.014 Hordeolum externum of lower eyelid of left eye 1112020584 07703 H00.015 Health Concerns Section Related Observation LastModified by Organization Detai ls LastModified Time None Recorded Concern Status LastModified by Organization Details LastModified Time None Recorded Advance Directives Directive None Recorded Payers Insurance Date Sequence Insurance Name Policy Number Policy Hernandez Covered Member ID Hernandez Member ID Guarantor Name 06/09/2023 1 [place] 2 (POS) [id number] Joana Vegas [id number] Joana Vegas Notes Date Note Type [...] lower lids anita Alleviating factors:nothing helpsUrinary / Supervisor Fertilizer Processing Problems-FemaleReported bypatient.source of patient informationInformation obtained from [...] or contact lens use. Yadira Cantrell MD [address] [place] [address] [place] [place], [address], [place] - [facility] 06/03/2023 14:12:57 OBGyn Episode No OBEpisode recorded.
--- OUTSIDE RECORDS SUMMARY | 2025-01-15 08:48 | XMS_ITS | Patient Health Record ---
Author Organization [facility] Address [address] [place] [address] Care Team Providers Care Dust Puller Name Role Phone DionnefilomenaVivienne Primary Care Provider UnavailToni Medina [phone] Allergies No Known Allergies Results Component Value Reference Range Notes Immunoglobulin A Reviewed date:06/13/2024 06:31:14 PM Interpretation: Performing Lab:[facility], [address] [place] [address] Notes/Report: Immunoglobulin A 346 47-310 mg/dL THIS TEST WAS PERFORMED AT: [facility] [address] [place] [phone] LIDIA HOWARD MD Transglutaminase Ab IgG Reviewed date:03/15/2024 06:26:46 PM Interpretation: Performing Lab:[facility], [address] [place] [address] Notes/Report: Transglutaminase Ab IgG <1.0 Value Interpretation ----- <15.0 Antibody not detected > or = 15.0 Antibody detected THIS TEST WAS PERFORMED AT: [facility] [address] [place] [address] LIDIA HOWARD MD Transglutaminase IgA Reviewed date:03/15/2024 06:27:01 PM Interpretation: Performing Lab:[facility], [address] [place] [address] Notes/Report: Transglutaminase IgA <1.0 Value Interpretation ----- <15.0 Antibody not detected > or = 15.0 Antibody detected THIS TEST WAS PERFORMED AT: [facility] [address] [place] [address] LIDIA HOWARD MD Gliadin Ab Panel Reviewed date:03/15/2024 06:27:09 PM Interpretation: Performing Lab:[facility], [address] [place] [address] Notes/Report: Gliadin Deamidated IgA Ab 4.2 Value Interpretation ----- <15.0 Antibody not detected > or = 15.0 Antibody detected Gliadin Deamidated IgG Ab 2.9 Value Interpretation ----- <15.0 Antibody not detected > or = 15.0 Antibody detected THIS TEST WAS PERFORMED AT: [facility] [address] [place] [address] LIDIA HOWARD MD Endomysial IgA rflx Titer Reviewed date:03/15/2024 06:27:17 PM Interpretation: Performing Lab:[facility], [address] [place] [address] Notes/Report: Endomysial IgA Antibody Negative Negative THIS TEST WAS PERFORMED AT: [facility] [address] MAHAD GRIGGS MD,PHD Endomysial Titer TNP Pathology (Not yet reviewed by provider) Interpretation: Performing Lab:[facility], [address] [place] [address] Notes/Report: Reason For Referral No Information Medications Medication [...] Status Risk Notes Problem Colon cancer screening (534138527) Colon cancer screening (Z12.11) Active confirmed Problem Diverticulosis o f large intestine without perforation or abscess without bleeding (K57.30) Active confirmed Problem Chronic diarrhea (721698977) Chronic diarrhea (K52.9) Active confirmed Vital Signs Blood pressure diastolic 00 mm Hg 02/27/2024 Height 5 ft 3 in in 02/27/2024 Blood pressure systolic 00 mm Hg 02/27/2024 Weight 169 lbs 02/27/2024 BMI 29.93 kg/m2 02/27/2024 Encounters Encounter Location Date Provider Diagnosis [facility] Outpatient [address] [place] [id number] 06/14/2024 Toni Baer Colon cancer screeni ng Z12.11 ; Colon polyps K63.5 ; Diverticulosis of large intestine without perforation or abscess without bleeding K57.30 and Other hemorrhoids K64.8 [facility] [address] [place] [address] 02/27/2024 Toni Baer Colon cancer screeni ng [...] Insured Coverage Start Date Coverage End Date [facility] [address] [place] [address] [id number] HECTOR ORTIZ Self - patient is the insured Medical (General) History Medical History History ICD Code Denies [place],DM,CVA,Lung disease,renal dise ase Hyperlipidemia Depression Surgical History Surgery Date(Month/Year) D&C 2023
== END 2025-01-15 09:29 | disposition home or self-care (01) ==
LOC: HO.HWS 08:34
PROVIDERS: PCP Internal Medicine; Visit Provider Obstetrics & Gynecology
DX: N95.0 Postmenopausal bleeding (principal); D25.9 Leiomyoma of uterus, unspecified
CPT/HCPCS: 58100; 99213

== ENCOUNTER 2025-01-15 08:34 | Outpatient (REF) | payer BC, SELFPAY | END 2025-01-15 08:35 | disposition home or self-care (01) | LOC: HO.LNP 08:34 | PROVIDERS: PCP Internal Medicine; Visit Provider Obstetrics & Gynecology | DX: N95.0 Postmenopausal bleeding (principal); D25.9 Leiomyoma of uterus, unspecified | CPT/HCPCS: 58100; 88305 ==

== ENCOUNTER 2025-02-06 13:25 | Outpatient (AMB) | payer BC, SELFPAY ==
--- NOTE | 2025-02-06 13:25 | MHC.OFFVIS ---
Intake Visit Reasons: TV emb results Allergies No Known Allergies Allergy (Verified 01/15/25 08:36) HPI Comments Details: The patient scheduled a health visit post EMB complaining, needle vaginal spotting no feverishness chills or abdominal pain. The pathology showed the following: Endometrium, biopsy: - Superficial fragments of benign endometrium with pseudodecidual change, consistent with exogenous progestin; patchy breakdown and organizing clot. - Small fragment with features of endometrial polyp. - Few fragments of endocervical tissue within normal limits. - No atypia identified PFSH Medical History Epidermal cyst Hyperlipidemia Surgical History Hx of dilation and curettage H/O breast augmentation Family History Father HTN (hypertension) Heart attack Mother Lung cancer Bone cancer Paternal Uncle Heart attack Maternal Grandfather Lung cancer Maternal Aunt Ovarian cancer Family/Other Brain cancer Lung cancer Social History Household Members Other:: brother Housing: House Alcohol intake: current Alcohol intake frequency: holidays/special occasions only Patient Tobacco Use Status: Never used Tobacco Current occupational status: employed Current occupation: [employer] Sexual orientation: Straight/Heterosexual Gender identity: Female Female Reproductive History Menstrual Age of Menarche: 10 Review of Systems Const All systems reviewed & are unremarkable except as noted in HPI and below Reports as per HPI and Reports no additional complaints GI Reports no additional complaints Reports no additional complaints Telehealth Telehealth Telehealth Platform: Telephone Location of provider rendering services: practice address Location of patient: address on file Patient Identification confirmed using: Name, : Yes Telehealth method: video Patient verbally consented to treatment: Yes Patient verbally consented to billing insurance company: Yes Patient informed of any privacy concerns related to visit: Yes Minutes spent on Phone/Video with Pt.: 7 Assessment & Plan Assessment & Plan (1) Postmenopausal bleeding: Comment: Proliferative endometrium in 01/3002/08/2024 Mirena IUD insertion 06/02 inactive endometrium 11/01 active endometrium 01/31 benign endometrium with fragments of polyp Code(s): N95.0 - Postmenopausal bleeding Category: Medical Plan: Discussed with the patient the finding on pathology showing benign endometrium with small fragments with features of endometrial polyp Discussed with the patient the options of treatment includin-expectant management will repeat ultrasound for measuring endometrial stripe 3 months 2- hysteroscopic polypectomy with IUD removal and reinsertion 3-definitive surgical management including minimally invasive hysterectomy with BSO All pros and cons risks and benefits of each approach were discussed with the patient, the patient would like to go with expectant management and repeat ultrasound in 3 months if spotting/bleeding completely resolve endometrial stripe is 4 mm and below continue expectant management otherwise will treat accordingly. All questions answered, the patient verbalized understanding. Instructions given the patient to call in case of vaginal bleeding/spotting and to schedule an ultrasound follow-up appointment in three-month. I spent a total of 20 minutes reviewing the chart, talking to the patient via video and documenting in the medical record. Orders: Orders US pelvic and transvaginal 3 Months N95.0 - Postmenopausal bleeding Coding Level of Care Code Tele Est Pt Level 3 (90318) Diagnoses Postmenopausal bleeding N95.0
--- OUTSIDE RECORDS SUMMARY | 2025-02-06 13:37 | XMS_ITS | Patient Health Record ---
Author Organization [facility] Address [address] [place] [address] Care Team Providers Care Exterminator Helper Name Role Phone DionnefilomenaVivienne Primary Care Provider UnavailToni Medina [phone] Allergies No Known Allergies Results Component Value Reference Range Notes Immunoglobulin A Reviewed date:06/13/2024 06:31:14 PM Interpretation: Performing Lab:, [address] [place] [address] Notes/Report: Immunoglobulin A 346 47-310 mg/dL THIS TEST WAS PERFORMED AT: [facility] [address] [place] [address] LIDIA HOWARD MD Transglutaminase Ab IgG Reviewed date:03/15/2024 06:26:46 PM Interpretation: Performing Lab:, [address] [place] [address] Notes/Report: Transglutaminase Ab IgG <1.0 Value Interpretation ----- <15.0 Antibody not detected > or = 15.0 Antibody detected THIS TEST WAS PERFORMED AT: [facility] [address] [place] [address] LIDIA HOWARD MD Transglutaminase IgA Reviewed date:03/15/2024 06:27:01 PM Interpretation: Performing Lab:, [address] [place] [address] Notes/Report: Transglutaminase IgA <1.0 Value Interpretation ----- <15.0 Antibody not detected > or = 15.0 Antibody detected THIS TEST WAS PERFORMED AT: [facility] [address] [place] [phone] LIDIA HOWARD MD Gliadin Ab Panel Reviewed date:03/15/2024 06:27:09 PM Interpretation: Performing Lab:, [address] [place] [address] Notes/Report: Gliadin Deamidated IgA Ab 4.2 Value Interpretation ----- <15.0 Antibody not detected > or = 15.0 Antibody detected Gliadin Deamidated IgG Ab 2.9 Value Interpretation ----- <15.0 Antibody not detected > or = 15.0 Antibody detected THIS TEST WAS PERFORMED AT: [facility] [address] [place] [address] LIDIA HOWARD MD Endomysial IgA rflx Titer Reviewed date:03/15/2024 06:27:17 PM Interpretation: Performing Lab:, [address] [place] [address] Notes/Report: Endomysial IgA Antibody Negative Negative THIS TEST WAS PERFORMED AT: [facility] [address] MAHAD GRIGGS MD,PHD Endomysial Titer TNP Pathology (Not yet reviewed by provider) Interpretation: Performing Lab:, [address] [place] [address] Notes/Report: Reason For Referral No Information Medications [...] Status Risk Notes Problem Colon cancer screening (015943468) Colon cancer screening (Z12.11) Active confirmed Problem Diverticulosis o f large intestine without perforation or abscess without bleeding (K57.30) Active confirmed Problem Chronic diarrhea (485397540) Chronic diarrhea (K52.9) Active confirmed Vital Signs Blood pressure diastolic 00 mm Hg 02/27/2024 Height 5 ft 3 in in 02/27/2024 Blood pressure systolic 00 mm Hg 02/27/2024 Weight 169 lbs 02/27/2024 BMI 29.93 kg/m2 02/27/2024 Encounters Encounter Location Date Provider Diagnosis [facility] Out[place] [address] [place] [id number] 06/14/2024 Toni Baer Colon cancer screeni ng Z12.11 ; Colon polyps K63.5 ; Diverticulosis of large intestine without perforation or abscess without bleeding K57.30 and Other hemorrhoids K64.8 [facility] [address] [place] [address] 02/27/2024 Toni Baer Colon cancer screeni ng [...] her symptoms in check in the meantime. Hecotr was comfortable with this plan. Thank you [...] Insured Coverage Start Date Coverage End Date [facility] [address] [place] [address] [phone] [id number] HECTOR ORTIZ Self - patient is the insured Medical (General) History Medical History History ICD Code Denies NE,DM,CVA,Lung disease,renal dise ase Hyperlipidemia Depression Surgical History Surgery Date(Month/Year) D&C 2023
--- OUTSIDE RECORDS SUMMARY | 2025-02-06 13:37 | XMS_ITS | Clinical Summary ---
Author Organization [facility] Address [address] [place] [address] Care Team Providers Care Rubber Mixer Name Role Phone Unavailable Primary Care Provider [...]
== END 2025-02-06 14:01 | disposition home or self-care (01) ==
LOC: HO.HWS 13:25
PROVIDERS: PCP Internal Medicine; Visit Provider Obstetrics & Gynecology
DX: N95.0 Postmenopausal bleeding (principal)
CPT/HCPCS: 99213

== ENCOUNTER 2025-05-08 12:51 | Outpatient (REF) | payer BC, SELFPAY ==
--- OUTSIDE RECORDS SUMMARY | 2024-06-14 04:30 | XMS_ITS ---
Author Organization [facility] Address [address] [place] [address] Care Team Providers Care Efficiency Expert Name Role Phone Vivienne Bonilla Primary Care Provider UnavailToni Medina [phone] REASON FOR VISIT screening Problems Problem Type SNOMED Code ICD Code Onset Dates Problem Status W/U Status Risk Notes Problem Diverticular disease of colon (195508087) Diverticulosis of large intestine without perforation or abscess without bleeding (K57.30) Active confirmed Encounters Encounter Location Date Provider Diagnosis [facility] [place] [place] Outpatient [address] [place] [phone] 06/14/2024 Toni Baer Colon cancer scree gianfranco [...] * DEVANTE ORTIZOB:1970 ( 54 yo F)Acc No.[id number]:06/14/2024 COLON WITH MAC 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
--- NOTE | ~2025-05-08 | US_ITS ---
EXAMINATION: US PELVIS CLINICAL INFORMATION: Postmenopausal bleeding COMPARISON: There is some pelvis 11/27/2024 TECHNIQUE: Ultrasound of the pelvis is performed using both transabdominal and transvaginal transducers along with Doppler. Transvaginal imaging is performed due to inadequate visualization transabdominally. FINDINGS: Uterus: The uterus is anteverted , anteflexed and measures 8.1 x 4.3 x 6.0 cm. The double wall endometrial thickness is not well seen. The uterus is smooth in contour and has normal myometrial echogenicity. There is complex hypoechoic lobulated lesion in the posterior lower uterine segment measuring 1.4 x 1.1 x 1.3 cm suggestive of a small fibroid. Previously measured 1.1 x 0.8 x 1.1 cm.. IUD is visualized within the endometrial cavity but not in its entire extent. Adnexa: Both ovaries are visualized transabdominally. There is normal color flow to the adnexa. There is no ovarian torsion. There is no pelvic ascites or fluid collection. Right ovary measures 3.1 x 1.9 x 1.5 cm cm. Volume 4.6 mL. Previously measured 2.6 x 1.7 x 2.3 cm. Left ovary measures 2.5 x 2.0 x 1.1 cm. Volume 2.7 mL. Previously it measured 2.0 x 1.6 x 1.3 cm. There is no free fluid in cul-de-sac. US/US pelvic and transvaginal IMPRESSION: Complex lobulated cyst versus fibroid in the lower posterior uterine segment. IUD appears to be within the mid and the proximal uterine segment however suboptimally visualized. Ovaries of the visualized transabdominally and appear unremarkable. No free fluid in the cul-de-sac. Electronically signed by: Joshua Hammer MD 05/08/2025 01:36 PM EDT
--- OUTSIDE RECORDS SUMMARY | 2025-05-08 15:44 | XMS_ITS | Clinical Summary ---
Author Organization [facility] Address [address] [place] [address] Care Team Providers Care Account Retention Representative Name Role Phone Unavailable Primary Care Provider [...] of 2) 2018 COVID-19 Vaccine ( - season) 2025 RSV Vaccine 50 years and old er and Patients (1 - 1-dose 75+ series) 09/17/2043
--- OUTSIDE RECORDS SUMMARY | 2025-05-08 15:44 | XMS_ITS | Patient Health Record ---
Author Organization [facility] Address [address] [place] [address] Care Team Providers Care Plaster Tender Name Role Phone Vivienne Bonilla Primary Care Provider UnavailToni Medina Unavailable [phone] Allergies No Known Allergies Results Component Value Reference Range Notes Pathology (Not yet reviewed by provider) Interpretation: Performing Lab:[facility], [address] [place] [phone] Notes/Report: Reason For Referral No Information Medications Medication SIG (Take, Route, Frequency, Duration) Notes Start Date End Date Status Sertraline HCl 50 MG Oral; Duration: 90 Active Atorvastatin Calcium 40 MG TAKE 1 TABLET BY MOUTH EVERY DAY Oral; Duration: 90 Active Social History Tobacco Use: Social [...] Status Risk Notes Problem Colon cancer screening (090733535) Colon cancer screening (Z12.11) Active confirmed Problem Diverticular disease of colon (010161977) Diverticulosis of large intestine without perforation or abscess without bleeding (K57.30) Active confirmed Problem Chronic diarrhea (193095101) Chronic diarrhea (K52.9) Active confirmed Encounters Encounter Location Date Provider Diagnosis [facility] [place] [address] [place] [id number] 06/14/2024 Toni Baer Colon cancer wilda medel Z12.11 ; Colon polyps K63.5 ; Diverticulosis [...] Insured Coverage Start Date Coverage End Date [facility] [address] [place] [address] [id number] HECTOR ORTIZ Self - patient is the insured Medical (General) History Medical History History ICD Code Denies [place],DM,CVA,Lung disease,renal dise ase Hyperlipidemia Depression Surgical History Surgery Date(Month/Year) D&C 2023
== END 2025-05-08 12:52 | disposition home or self-care (01) ==
LOC: HO.US 12:51
PROVIDERS: PCP Internal Medicine; Visit Provider Obstetrics & Gynecology
DX: N95.0 Postmenopausal bleeding (principal)
CPT/HCPCS: 76830; 76856

== ENCOUNTER → 2025-05-08 12:53 | Outpatient (BNV) | payer BC, SELFPAY | PROVIDERS: PCP Internal Medicine; Visit Provider Radiology Diagnostic Radiology | DX: N95.0 Postmenopausal bleeding (principal) | CPT/HCPCS: 76830; 76856 ==

== ENCOUNTER 2025-05-13 14:52 | Outpatient (AMB) | payer BC, SELFPAY ==
--- OUTSIDE RECORDS SUMMARY | 2024-06-14 03:30 | XMS_ITS ---
Author Organization [facility] Address [address] [place] [address] Care Team Providers Care Funding Analyst Name Role Phone Vivienne Bonilla Primary Care Provider UnavailToni Medina [phone] REASON FOR VISIT screening Problems Problem Type SNOMED Code ICD Code Onset Dates Problem Status W/U Status Risk Notes Problem Diverticular disease of colon (663551463) Diverticulosis of large intestine without perforation or abscess without bleeding (K57.30) Active confirmed Encounters Encounter Location Date Provider Diagnosis [facility] [place] Outpatient [address] [place] [phone] 06/14/2024 Toni Baer Colon cancer scree gianfranco Z12.11 ; Colon polyps K63.5 ; Diverticulosis of large intestine without perforation or abscess without bleeding K57.30 and Other hemorrhoids K64.8 Assessments Encounter Date Diagnosis (ICD Code) Assessment Notes Treatment Notes Treatment Clinical Notes Section Notes 06/14/2024 Colon cancer screening (ICD-10 - Z12.11) 06/14/2024 Colon polyps (ICD-10 - K63.5) 06/14/2024 Diverticulosis of large intestine without perforation or abscess without bleeding (ICD-10 - K57.30) 06/14/2024 Other hemorrhoids (ICD-10 - K64.8) Plan Of Treatment No Information Progress Notes * DEVANTE ORTIZOB:1970 ( 54 yo F)Acc No.[id number]:06/14/2024 COLON WITH MAC 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 Screening. * Medical History: Objective: * Vitals: Assessment: * Assessment: 1. C olon cancer screening - Z12.11 (Primary) 2 . C olon polyps - K63.5? 3. D iverticulosis of large intestine without perforation or abscess without bleeding - K57.30 4 . O ther hemorrhoids - K64.8 Plan: * Treatment: * Procedure Codes: 4 5380 COLONOSCOPY AND BIOPSY, Modifiers: PT * * The named appointment provid er may or may not be the originator of this progress note, and it is not deemed complete until electronically signed by the appointment provider. Sign off status: Pending * Provider: Robert Baer MD Date: 08/15/2023 Generated for Tri aldridge/Alex/Shanikaitting on: 07/13/2024 05:57 PM EST
--- NOTE | 2025-05-13 15:00 | MHC.OFFVIS ---
Vital Signs 05/13/25 15:03 Height 5 ft 3 in Weight 162 lb BMI 28.7 BP 110/80 Intake Visit Reasons: IUD removal/Discuss options Bed Machine Operator Required: No Information Interpreted: non-clinical & clinical Improvement Engineer: Improvement Engineer Present (Zoila RAMIREZ) Accompanied by: Self / Same As Patient Allergies No Known Allergies Allergy (Verified 05/13/25 15:05) Is last menstrual period known: No (mirena) HPI Comments Details: Presenting for ultrasound follow-up done recently which showed the following: Uterus: The uterus is anteverted , anteflexed and measures 8.1 x 4.3 x 6.0 cm. The double wall endometrial thickness is not well seen. The uterus is smooth in contour and has normal myometrial echogenicity. There is complex hypoechoic lobulated lesion in the posterior lower uterine segment measuring 1.4 x 1.1 x 1.3 cm suggestive of a small fibroid. Previously measured 1.1 x 0.8 x 1.1 cm.. IUD is visualized within the endometrial cavity but not in its entire extent. Adnexa: Both ovaries are visualized transabdominally. There is normal color flow to the adnexa. There is no ovarian torsion. There is no pelvic ascites or fluid collection. Right ovary measures 3.1 x 1.9 x 1.5 cm cm. Volume 4.6 mL. Previously measured 2.6 x 1.7 x 2.3 cm. Left ovary measures 2.5 x 2.0 x 1.1 cm. Volume 2.7 mL. Previously it measured 2.0 x 1.6 x 1.3 cm. There is no free fluid in cul-de-sac. US/US pelvic and transvaginal IMPRESSION: Complex lobulated cyst versus fibroid in the lower posterior uterine segment. IUD appears to be within the mid and the proximal uterine segment however suboptimally visualized. Ovaries of the visualized transabdominally and appear unremarkable. No free fluid in the cul-de-sac PFSH Medical History Epidermal cyst Hyperlipidemia Surgical History Hx of dilation and curettage H/O breast augmentation Family History Father HTN (hypertension) Heart attack Mother Lung cancer Bone cancer Paternal Uncle Heart attack Maternal Grandfather Lung cancer Maternal Aunt Ovarian cancer Family/Other Brain cancer Lung cancer Social History Household Members Other:: brother Housing: House Alcohol intake: current Alcohol intake frequency: holidays/special occasions only Patient Tobacco Use Status: Never used Tobacco Current occupational status: employed Current occupation: [employer] Sexual orientation: Straight/Heterosexual Gender identity: Female Female Reproductive History Menstrual Age of Menarche: 10 control method: progestin IUCD Review of Systems Const All systems reviewed & are unremarkable except as noted in HPI and below Physical Exam Vital Signs: Last Vital Signs BP 110/80 05/13/25 15:03 BMI result Body Mass Index 28.7 General: Yes no CVA tenderness External Female Exam: normal external appearance and normal appearance of the urethra Speculum Exam - Vagina: normal appearance of the vagina, normal palpation, no lesions and no masses Speculum Exam - Cervix: normal appearance of the cervix, normal palpation, no lesions, no masses, nontender and Other cervical findings present (IUD string seen in place) Bimanual exam- vagina & uterus: normal bimanual exam, normal palpation, uterine size normal, normal palpation, uterine shape normal, No Cervical tenderness present and non-tender Bimanual Exam- Adnexa, other: normal adnexae Back/Spine/Pelvis Back: no CVA tenderness Assessment & Plan Assessment & Plan (1) Uterine myoma: Code(s): D25.9 - Leiomyoma of uterus, unspecified Category: Medical Plan: Discussed with the patient the findings on pelvic ultrasound & the risk of myosarcoma; in addition reviewed with the patient that malignancy and pre malignancy cannot be ruled out without hysterectomy for pathological evaluation ; furthermore, explained to the patient the limitation of pelvic ultrasound and endometrial biopsy in the setting. Discussed with the patient the options of treatment including expectant management versus hysterectomy; the pros and cons, risks benefits of each approach were discussed with the patient including the fact that in cases of myosarcoma, surgical treatment can lead to early diagnosis and positively affects the prognosis; after further discussion, the patient decided to proceed with expectant management. Will repeat pelvic ultrasound periodically. Instructions given to patient to call in case any of the following occurs: pressure symptoms, abnormal uterine bleeding, pelvic pain; and to schedule a 6 months pelvic ultrasound (order placed) and a follow-up appointment . All questions answered, the patient verbalized understanding and agreed with the plan . (2) Malpositioned IUD: Code(s): T83.32XA - Displacement of intrauterine contraceptive device, initial encounter Category: Medical Plan: Since IUD was not entirely seen by ultrasound discussed with the patient the options of treatment either removal of IUD and reinsertion versus progesterone p.o. versus a repeat ultrasound to confirm malpositioned prior to any action. All pros and cons, risks and benefits of each approach were discussed with the patient, the patient decided to proceed with repeat ultrasound within 2 weeks to confirm the IUD position. Instructions given the patient is schedule an ultrasound follow-up appointment within 2 weeks. All questions answered, the patient verbalized understood Orders: Orders US pelvic and transvaginal Today D25.9 - Leiomyoma of uterus, unspecified US pelvic and transvaginal 6 Months D25.9 - Leiomyoma of uterus, unspecified Coding Level of Care Code Est Pt Level 3 (39848) Diagnoses Uterine myoma D25.9 Malpositioned IUD T83.32XA
[2025-05-13 15:03] VITALS: BP 110/80; BMI 28.7
--- OUTSIDE RECORDS SUMMARY | 2025-05-13 17:57 | XMS_ITS | Patient Health Record ---
Author Organization [facility] Address [address] [place] [address] Care Team Providers Care Shirring Tender Name Role Phone Vivienne Bonilla Primary Care Provider UnavailToni Medina Unavailable [phone] Allergies No Known Allergies Results Component Value Reference Range Notes Pathology (Not yet reviewed by provider) Interpretation: Performing Lab:[facility], [address] [place] [id number] Notes/Report: Reason For Referral No Information Medications [...] Status Risk Notes Problem Colon cancer screening (256765272) Colon cancer screening (Z12.11) Active confirmed Problem Diverticular disease of colon (393316852) Diverticulosis of large intestine without perforation or abscess without bleeding (K57.30) Active confirmed Problem Chronic diarrhea (951446549) Chronic diarrhea (K52.9) Active confirmed Encounters Encounter Location Date Provider Diagnosis [facility] [place] [address] [place] [phone] 06/14/2024 Toni Baer Colon cancer wilda medel [...] Insured Coverage Start Date Coverage End Date [facility] [id number] [place] [address] [id number] HECTOR ORTIZ Self - patient is the insured Medical (General) History Medical History History ICD Code Denies MS,DM,CVA,Lung disease,renal dise ase Hyperlipidemia Depression Surgical History Surgery Date(Month/Year) D&C 2023
--- OUTSIDE RECORDS SUMMARY | 2025-05-13 17:57 | XMS_ITS | Clinical Summary ---
Author Organization [facility] Address [address] [place] [address] Care Team Providers Care Duct Layer Helper Name Role Phone Unavailable Primary Care Provider [...]
== END 2025-05-13 15:22 | disposition home or self-care (01) ==
LOC: HO.HWS 14:53
PROVIDERS: PCP Internal Medicine; Visit Provider Obstetrics & Gynecology
DX: D25.9 Leiomyoma of uterus, unspecified (principal); T83.32XA Displacement of intrauterine contraceptive device, initial encounter
CPT/HCPCS: 99213

== ENCOUNTER 2025-05-23 13:49 | Outpatient (REF) | payer BC, SELFPAY ==
--- NOTE | ~2025-05-23 | US_ITS ---
EXAMINATION: US PELVIS CLINICAL INFORMATION: D25.9 - Leiomyoma of uterus, unspecified COMPARISON: March 08, 2025 TECHNIQUE: Ultrasound of the pelvis is performed using both transabdominal and transvaginal transducers along with Doppler. Transvaginal imaging is performed due to inadequate visualization transabdominally. FINDINGS: UTERUS: The uterus is anteverted and measures 7.4 x 4.2 x 4.7 cm. The double wall endometrial thickness is obscured by IUD. IUD is present in the upper uterine canal. The uterus is smooth in contour and has normal myometrial echogenicity except for a focal hypoechoic region in the posterior lower uterine body consistent with a leiomyoma measuring 1.2 x 0.9 x 1.1 cm, previously 1.4 x 1.1 x 1.3 cm. Adnexa: Both ovaries are visualized. There is normal color flow to the adnexa. There is no ovarian torsion. There is no pelvic ascites or fluid collection. Right ovary measures 1.8 x 1.3 x 1.2 cm. Left ovary measures 2.0 x 1.1 x 1.2 cm. US/US pelvic and transvaginal IMPRESSION: Appropriately positioned IUD. Stable small uterine leiomyoma. Electronically signed by: Sidney Morris MD 05/23/2025 02:56 PM JATINDER
--- OUTSIDE RECORDS SUMMARY | 2025-05-23 20:11 | XMS_ITS | Clinical Summary ---
Author Organization [facility] Address [address] [place] [address] Care Team Providers Care Fiber Optics Supervisor Name Role Phone Unavailable Primary Care Provider [...]
== END 2025-05-23 13:50 | disposition home or self-care (01) ==
LOC: HO.US 13:49
PROVIDERS: PCP Internal Medicine; Visit Provider Obstetrics & Gynecology
DX: D25.9 Leiomyoma of uterus, unspecified (principal)
CPT/HCPCS: 76830; 76856

== ENCOUNTER → 2025-05-23 13:51 | Outpatient (BNV) | payer BC, SELFPAY | PROVIDERS: PCP Internal Medicine; Visit Provider Radiology Diagnostic Radiology | DX: D25.9 Leiomyoma of uterus, unspecified (principal) | CPT/HCPCS: 76830; 76856 ==

== ENCOUNTER 2025-05-27 10:48 | Outpatient (AMB) | payer BC, SELFPAY ==
--- NOTE | 2025-05-27 11:09 | MHC.OFFVIS ---
Vital Signs 05/27/25 11:10 Height 5 ft 3 in Weight 162 lb BMI 28.7 BP 118/70 Intake Visit Reasons: US follow up Hot Kettle Tender Required: No Information Interpreted: non-clinical & clinical Accompanied by: Self / Same As Patient Allergies No Known Allergies Allergy (Verified 05/27/25 11:13) Post menopausal: Yes HPI Comments Details: Presenting for ultrasound follow-up with no complaints no pelvic pain pressure or vaginal bleeding Pelvic ultrasound showed the following: UTERUS: The uterus is anteverted and measures 7.4 x 4.2 x 4.7 cm. The double wall endometrial thickness is obscured by IUD. IUD is present in the upper uterine canal. The uterus is smooth in contour and has normal myometrial echogenicity except for a focal hypoechoic region in the posterior lower uterine body consistent with a leiomyoma measuring 1.2 x 0.9 x 1.1 cm, previously 1.4 x 1.1 x 1.3 cm. Adnexa: Both ovaries are visualized. There is normal color flow to the adnexa. There is no ovarian torsion. There is no pelvic ascites or fluid collection. Right ovary measures 1.8 x 1.3 x 1.2 cm. Left ovary measures 2.0 x 1.1 x 1.2 cm. US/US pelvic and transvaginal IMPRESSION: Appropriately positioned IUD. [facility] Medical History Epidermal cyst Hyperlipidemia Surgical History Hx of dilation and curettage H/O breast augmentation Family History Father HTN (hypertension) Heart attack Mother Lung cancer Bone cancer Paternal Uncle Heart attack Maternal Grandfather Lung cancer Maternal Aunt Ovarian cancer Family/Other Brain cancer Lung cancer Social History Household Members Other:: brother Housing: House Alcohol intake: current Alcohol intake frequency: holidays/special occasions only Patient Tobacco Use Status: Never used Tobacco Current occupational status: employed Current occupation: [employer] Sexual orientation: Straight/Heterosexual Gender identity: Female Female Reproductive History Menstrual Age of Menarche: 10 Review of Systems Const All systems reviewed & are unremarkable except as noted in HPI and below Reports as per HPI and Reports no additional complaints GI Reports no additional complaints Reports no additional complaints Assessment & Plan Assessment & Plan (1) Uterine myoma: Code(s): D25.9 - Leiomyoma of uterus, unspecified Category: Medical Plan: Discussed with the patient the findings on pelvic ultrasound & the risk of myosarcoma; in addition reviewed with the patient that malignancy and pre malignancy cannot be ruled out without hysterectomy for pathological evaluation ; furthermore, explained to the patient the limitation of pelvic ultrasound and endometrial biopsy in the setting. Discussed with the patient the options of treatment including expectant management versus hysterectomy; the pros and cons, risks benefits of each approach were discussed with the patient including the fact that in cases of myosarcoma, surgical treatment can lead to early diagnosis and positively affects the prognosis; after further discussion, the patient decided to proceed with expectant management. Will repeat pelvic ultrasound periodically. Instructions given to patient to call in case any of the following occurs: pressure symptoms, abnormal uterine bleeding, pelvic pain; and to schedule a 12-months pelvic ultrasound (order placed) and a follow-up appointment . All questions answered, the patient verbalized understanding and agreed with the plan . Orders: Orders US pelvic and transvaginal 1 Year D25.9 - Leiomyoma of uterus, unspecified Coding Level of Care Code Est Pt Level 3 (93458) Diagnoses Uterine myoma D25.9
[2025-05-27 11:10] VITALS: BP 118/70; BMI 28.7
== END 2025-05-27 11:21 | disposition home or self-care (01) ==
LOC: HO.HWS 10:49
PROVIDERS: PCP Internal Medicine; Visit Provider Obstetrics & Gynecology
DX: D25.9 Leiomyoma of uterus, unspecified (principal)
CPT/HCPCS: 99213